=== PATIENT | male | born 1940 | race Two or more races ===

== ENCOUNTER 2018-12-20 12:09 | Inpatient (IN) | payer MEDICARE, BC ==
[2018-12-20] MEDS ORDERED: Albuterol/Ipratropium 3.0-0.5 MG/3 ML Neb Soln ONE (12:11)
[2018-12-20] MEDS ORDERED: Sodium Chloride 0.9% 10 ML Syringe FLUSH PRN (12:19)
[2018-12-20] MEDS ORDERED: Sodium Chloride 0.9% 2.5 ML Syringe FLUSH PRN (12:19)
--- NOTE | 2018-12-20 12:19 | EDM.PDOC ---
ED HPI GENERAL MEDICAL PROBLEM - General Chief Complaint: Respiratory Problem Stated Complaint: SOB Time Seen by Provider: 12/20/18 12:14 - History of Present Illness INITIAL COMMENTS - FREE TEXT/NARRATIVE: HISTORY AND PHYSICAL: History of present illness: Patient is 78-year-old white male history of coronary disease hypertension hypercholesterolemia throat cancer and COPD who presents with concern of shortness of breath he states he had similar episodes in the past related to COPD and associated pneumonia he equivocates regarding any fever he did receive influenza immunization this year he denies chest pain nausea vomiting. Review of systems: As per history of present illness and below otherwise all systems reviewed and negative. Past medical history: As per history of present illness and as reviewed below otherwise noncontributory. Surgical history: As per history of present illness and as reviewed below otherwise noncontributory. Social history: No reported history of drug or alcohol abuse. Family history: As per history of present illness and as reviewed below otherwise noncontributory. Physical exam: HEENT: Atraumatic, normocephalic, pupils reactive, negative for conjunctival pallor or scleral icterus, mucous membranes moist, throat clear, neck supple, nontender, trachea midline. Lungs: Coarse bilaterally diminished breath sounds equal bilaterally, chest nontender. Heart: S1S2, regular, negative for clicks, rubs, or JVD. Abdomen: Soft, nondistended, nontender. Negative for masses or hepatosplenomegaly. Negative for costovertebral tenderness. Pelvis: Stable nontender. Genitourinary: Deferred. Rectal: Deferred. Extremities: Atraumatic, negative for cords or calf pain. Neurovascular unremarkable. Neuro: Awake, alert, oriented. Follows commands and moves all extremities limited but grossly nonfocal examDiagnostics: CBC CMP PT/INR troponin BNP chest x-ray EKG influenza screen Therapeutics: IV O2 monitor albuterol ipratropium nebulizer Impression: 1 dyspnea #2 history of hypertension #3 history of COPD #4 history of hypercholesterolemia #5 history of throat cancer #6 history of pneumonia Definitive disposition and diagnosis as appropriate pending reevaluation and review of above. - Related Data Allergies Allergy/AdvReac Type Severity Reaction Status Date / Time No Known Allergies Allergy Verified 12/20/18 12:17 Home Meds: Home Meds Clopidogrel [Plavix] 75 mg PO DAILY 09/12/15 [History] Fluticasone/Salmeterol [Advair 250-50] 1 puff INH BID 09/12/15 [History] Metoprolol Succinate [Toprol XL] 100 mg PO DAILY 09/12/15 [History] Omeprazole 40 mg PO ACBREAKFAST 09/12/15 [History] traMADol HCl [Tramadol HCl] 50 mg PO DAILY 09/12/15 [History] Aspirin 81 mg PO DAILY tab.chew 09/13/15 [Rx] amLODIPine Besylate [Amlodipine Besylate] 10 mg PO DAILY 09/13/15 [History] Albuterol Sulfate [Proair Hfa] 2 puff INH Q4H PRN 12/20/18 [History] Celecoxib 200 mg PO DAILY 12/20/18 [History] Cyclobenzaprine [Flexeril] 10 mg PO DAILY PRN 12/20/18 [History] Nitroglycerin [Nitrostat] 0.4 mg SL Q5M PRN 12/20/18 [History] Tamsulosin [Tamsulosin 24 Hr] 0.4 mg PO DAILY 12/20/18 [History] atorvaSTATin [Lipitor] 40 mg PO DAILY 12/20/18 [History] Past Medical History 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 ED EXAM, GENERAL - Physical Exam Exam: See Below (See dictation) Course - Vital Signs Last Recorded V/S: Last Vital Signs Temp 37.3 C 12/20/18 12:15 Pulse 100 12/20/18 12:15 Resp 22 H 12/20/18 12:15 BP 136/56 L 12/20/18 12:15 Pulse Ox 90 L 12/20/18 12:19 - Orders/Labs/Meds Orders: Active Orders 24 hr Category Date Time Status Cardiac Monitoring [RC] . DIRECTED Care 12/20/18 12:19 Active EKG Documentation Completion [RC] STAT Care 12/20/18 12:19 Active Oxygen Therapy, ED [RC] ASDIRECTED Care 12/20/18 12:19 Active Pulse Oximetry [RC] ASDIRECTED Care 12/20/18 12:19 Active CULTURE BLOOD [BC] Stat Lab 12/20/18 12:34 Received CULTURE BLOOD [] Stat Lab 12/20/18 12:40 Received CULTURE SPUTUM + SMEAR [] Routine Lab 12/20/18 14:01 Ordered INFLUENZA A+B AG SCREEN [] Stat Lab 12/20/18 13:59 Ordered Levofloxacin/Dextrose 5%-Water [Levaquin in D5W 750 MG/ Med 12/20/18 13:22 Active 150 ML] 750 mg Premix Bag 1 bag IV ONETIME Levofloxacin/Dextrose 5%-Water [Levaquin in D5W 750 MG/ Med 12/21/18 14:00 Active 150 ML] 750 mg Premix Bag 1 bag IV Q24H Pharmacy to Dose - Vancomycin Med 12/20/18 14:00 Ordered 1 dose .XX ASDIRECTED Sodium Chloride 0.9% [Normal Saline] 1,000 ml Med 12/20/18 13:23 Active IV .Bolus Sodium Chloride 0.9% [Saline Flush] Med 12/20/18 12:19 Active 10 ml FLUSH ASDIRECTED PRN Sodium Chloride 0.9% [Saline Flush] Med 12/20/18 12:19 Active 2.5 ml FLUSH ASDIRECTED PRN Vancomycin [Vancocin] 1 gm Med 12/20/18 13:22 Active Sodium Chloride 0.9% [Normal Saline] 250 ml IV ONETIME Blood Culture x2 Reflex Set [OM.PC] Stat Oth 12/20/18 12:20 Ordered Saline Lock Insert [OM.PC] Stat Oth 12/20/18 12:19 Ordered Medication Orders Levofloxacin/Dextrose 750 mg/ (Premix) 150 mls @ 100 mls/hr IV ONETIME ONE Stop: 12/20/18 14:51 Vancomycin HCl 1 gm/ Sodium (Chloride) 250 mls @ 166 mls/hr IV ONETIME ONE Stop: 12/20/18 14:52 Sodium Chloride (Normal Saline) 1,000 mls @ 999 mls/hr IV .Bolus ONE Stop: 12/20/18 14:23 Last Admin: 12/20/18 13:59 Dose: 999 mls/hr Levofloxacin/Dextrose 750 mg/ (Premix) 150 mls @ 100 mls/hr IV Q24H ADAN Sodium Chloride (Saline Flush) 10 ml FLUSH ASDIRECTED PRN PRN Reason: Keep Vein Open Sodium Chloride (Saline Flush) 2.5 ml FLUSH ASDIRECTED PRN PRN Reason: Keep Vein Open Vancomycin HCl (Pharmacy To Dose - Vancomycin) 1 dose .XX ASDIRECTED ADAN Labs: Laboratory Tests 12/20/18 12/20/18 12/20/18 Range/Units 12:34 12:34 12:34 WBC 15.93 H (4.0-11.0) K/uL RBC 4.90 (4.50-5.90) M/uL Hgb 15.3 (13.0-17.0) g/dL Hct 44.7 (38.0-50.0) % MCV 91.2 (80.0-98.0) fL MCH 31.2 (27.0-32.0) pg MCHC 34.2 (31.0-37.0) g/dL RDW Std Deviation 45.4 (28.0-62.0) fl RDW Coeff of Yaniv 14 (11.0-15.0) % Plt Count 131 L (150-400) K/uL MPV 10.50 (7.40-12.00) fL Add Manual Diff YES Neutrophils % (Manual) 87 H (48.0-80.0) % Band Neutrophils % 4 % Lymphocytes % (Manual) 7 L (16.0-40.0) % Monocytes % (Manual) 1 (0.0-15.0) % Basophils % (Manual) 1 (0.0-1.5) % Nucleated RBC % 0.0 /100WBC Absolute Seg Neuts 13.9 H (1.4-5.7) Band Neutrophils # 0.6 Lymphocytes # (Manual) 1.1 (0.6-2.4) Monocytes # (Manual) 0.2 (0.0-0.8) Basophils # (Manual) 0.2 H (0.0-0.1) Nucleated RBCs # 0 K/uL INR 1.10 ABG pH (7.35-7.45) ABG pCO2 (35-45) mmHG ABG pO2 (75-100) mmHG ABG HCO3 (22-26) mEq/L ABG Total CO2 ABG Base Excess (-2.0-2.0) Lactate (0.20-2.00) mmol/L Sodium 139 (136-148) mmol/L Potassium 3.9 (3.5-5.1) mmol/L Chloride 105 (98-107) mmol/L Carbon Dioxide 26.3 (21.0-32.0) mmol/L BUN 20 H (7.0-18.0) mg/dL Creatinine 1.3 (0.8-1.3) mg/dL Est Cr Clr Drug Dosing 47.59 mL/min Estimated GFR (MDRD) 53.5 ml/min Glucose 153 H (74-106) mg/dL Calcium 9.0 (8.5-10.1) mg/dL Total Bilirubin 1.0 (0.2-1.0) mg/dL AST 16 (15-37) IU/L ALT 13 L (14-63) IU/L Alkaline Phosphatase 73 (46-116) U/L Troponin I < 0.050 (0.000-0.056) ng/mL B-Natriuretic Peptide (<100) PG/ML Total Protein 6.5 (6.4-8.2) g/dL Albumin 3.7 (3.4-5.0) g/dL Globulin 2.8 (2.6-4.0) g/dL Albumin/Globulin Ratio 1.3 (0.9-1.6) Urine Color Urine Appearance Urine pH (5.0-8.0) Ur Specific [place] (1.001-1.035) Urine Protein (NEGATIVE) mg/dL Urine Glucose (UA) (NEGATIVE) mg/dL Urine Ketones (NEGATIVE) mg/dL Urine Occult Blood (NEGATIVE) Urine Nitrite (NEGATIVE) Urine Bilirubin (NEGATIVE) Urine Urobilinogen (<2.0) EU/dL Ur Leukocyte Esterase (NEGATIVE) 12/20/18 12/20/18 12/20/18 Range/Units 12:34 12:34 12:55 WBC (4.0-11.0) K/uL RBC (4.50-5.90) M/uL Hgb (13.0-17.0) g/dL Hct (38.0-50.0) % MCV (80.0-98.0) fL MCH (27.0-32.0) pg MCHC (31.0-37.0) g/dL RDW Std Deviation (28.0-62.0) fl RDW Coeff of Yaniv (11.0-15.0) % Plt Count (150-400) K/uL MPV (7.40-12.00) fL Add Manual Diff Neutrophils % (Manual) (48.0-80.0) % Band Neutrophils % % Lymphocytes % (Manual) (16.0-40.0) % Monocytes % (Manual) (0.0-15.0) % Basophils % (Manual) (0.0-1.5) % Nucleated RBC % /100WBC Absolute Seg Neuts (1.4-5.7) Band Neutrophils # Lymphocytes # (Manual) (0.6-2.4) Monocytes # (Manual) (0.0-0.8) Basophils # (Manual) (0.0-0.1) Nucleated RBCs # K/uL INR ABG pH 7.414 (7.35-7.45) ABG pCO2 40 (35-45) mmHG ABG pO2 61 L (75-100) mmHG ABG HCO3 25 (22-26) mEq/L ABG Total CO2 22.2 ABG Base Excess 0.7 (-2.0-2.0) Lactate 2.0 (0.20-2.00) mmol/L Sodium (136-148) mmol/L Potassium (3.5-5.1) mmol/L Chloride (98-107) mmol/L Carbon Dioxide (21.0-32.0) mmol/L BUN (7.0-18.0) mg/dL Creatinine (0.8-1.3) mg/dL Est Cr Clr Drug Dosing mL/min Estimated GFR (MDRD) ml/min Glucose (74-106) mg/dL Calcium (8.5-10.1) mg/dL Total Bilirubin (0.2-1.0) mg/dL AST (15-37) IU/L ALT (14-63) IU/L Alkaline Phosphatase (46-116) U/L Troponin I (0.000-0.056) ng/mL B-Natriuretic Peptide 48 (<100) PG/ML Total Protein (6.4-8.2) g/dL Albumin (3.4-5.0) g/dL Globulin (2.6-4.0) g/dL Albumin/Globulin Ratio (0.9-1.6) Urine Color Urine Appearance Urine pH (5.0-8.0) Ur Specific [place] (1.001-1.035) Urine Protein (NEGATIVE) mg/dL Urine Glucose (UA) (NEGATIVE) mg/dL Urine Ketones (NEGATIVE) mg/dL Urine Occult Blood (NEGATIVE) Urine Nitrite (NEGATIVE) Urine Bilirubin (NEGATIVE) Urine Urobilinogen (<2.0) EU/dL Ur Leukocyte Esterase (NEGATIVE) 12/20/18 Range/Units 13:01 WBC (4.0-11.0) K/uL RBC (4.50-5.90) M/uL Hgb (13.0-17.0) g/dL Hct (38.0-50.0) % MCV (80.0-98.0) fL MCH (27.0-32.0) pg MCHC (31.0-37.0) g/dL RDW Std Deviation (28.0-62.0) fl RDW Coeff of Yaniv (11.0-15.0) % Plt Count (150-400) K/uL MPV (7.40-12.00) fL Add Manual Diff Neutrophils % (Manual) (48.0-80.0) % Band Neutrophils % % Lymphocytes % (Manual) (16.0-40.0) % Monocytes % (Manual) (0.0-15.0) % Basophils % (Manual) (0.0-1.5) % Nucleated RBC % /100WBC Absolute Seg Neuts (1.4-5.7) Band Neutrophils # Lymphocytes # (Manual) (0.6-2.4) Monocytes # (Manual) (0.0-0.8) Basophils # (Manual) (0.0-0.1) Nucleated RBCs # K/uL INR ABG pH (7.35-7.45) ABG pCO2 (35-45) mmHG ABG pO2 (75-100) mmHG ABG HCO3 (22-26) mEq/L ABG Total CO2 ABG Base Excess (-2.0-2.0) Lactate (0.20-2.00) mmol/L Sodium (136-148) mmol/L Potassium (3.5-5.1) mmol/L Chloride (98-107) mmol/L Carbon Dioxide (21.0-32.0) mmol/L BUN (7.0-18.0) mg/dL Creatinine (0.8-1.3) mg/dL Est Cr Clr Drug Dosing mL/min Estimated GFR (MDRD) ml/min Glucose (74-106) mg/dL Calcium (8.5-10.1) mg/dL Total Bilirubin (0.2-1.0) mg/dL AST (15-37) IU/L ALT (14-63) IU/L Alkaline Phosphatase (46-116) U/L Troponin I (0.000-0.056) ng/mL B-Natriuretic Peptide (<100) PG/ML Total Protein (6.4-8.2) g/dL Albumin (3.4-5.0) g/dL Globulin (2.6-4.0) g/dL Albumin/Globulin Ratio (0.9-1.6) Urine Color YELLOW Urine Appearance CLEAR Urine pH 5.5 (5.0-8.0) Ur Specific [place] 1.025 (1.001-1.035) Urine Protein NEGATIVE (NEGATIVE) mg/dL Urine Glucose (UA) NEGATIVE (NEGATIVE) mg/dL Urine Ketones NEGATIVE (NEGATIVE) mg/dL Urine Occult Blood NEGATIVE (NEGATIVE) Urine Nitrite NEGATIVE (NEGATIVE) Urine Bilirubin NEGATIVE (NEGATIVE) Urine Urobilinogen 0.2 (<2.0) EU/dL Ur Leukocyte Esterase NEGATIVE (NEGATIVE) Meds: Medications Generic Name Dose Route Start Last Admin Trade Name Freq PRN Reason Stop Dose Admin Levofloxacin/Dextrose 750 mg/ 150 mls @ 100 mls/hr 12/20/18 13:22 Premix IV 12/20/18 14:51 ONETIME ONE Vancomycin HCl 1 gm/ Sodium 250 mls @ 166 mls/hr 12/20/18 13:22 Chloride IV 12/20/18 14:52 ONETIME ONE Sodium Chloride 1,000 mls @ 999 mls/hr 12/20/18 13:23 12/20/18 13:59 Normal Saline IV 12/20/18 14:23 999 mls/hr .Bolus ONE Administration Levofloxacin/Dextrose 750 mg/ 150 mls @ 100 mls/hr 12/21/18 14:00 Premix IV Q24H ADAN Sodium Chloride 10 ml 12/20/18 12:19 Saline Flush FLUSH ASDIRECTED PRN Keep Vein Open Sodium Chloride 2.5 ml 12/20/18 12:19 Saline Flush FLUSH ASDIRECTED PRN Keep Vein Open Vancomycin HCl 1 dose 12/20/18 14:00 Pharmacy To Dose - Vancomycin .XX ASDIRECTED ADAN Discontinued Medications Generic Name Dose Route Start Last Admin Trade Name Freq PRN Reason Stop Dose Admin Albuterol/Ipratropium Confirm 12/20/18 12:11 12/20/18 12:17 Duoneb 3.0-0.5 Mg/3 Ml Administered 12/20/18 12:12 3 ml Dose Administration 3 ml .ROUTE .STK-MED ONE Departure - Departure Time of Disposition: 13:28 Disposition: Admitted As Inpatient 67 Condition: Good Clinical Impression: Pneumonia - Discharge Information Referrals: PCP,None [Primary Care Provider] - Forms: ED Department Discharge - My Orders Last 24 Hours: My Active Orders 12/20/18 12:19 Cardiac Monitoring [RC] . DIRECTED EKG Documentation Completion [RC] STAT Oxygen Therapy, ED [RC] ASDIRECTED Pulse Oximetry [RC] ASDIRECTED Sodium Chloride 0.9% [Saline Flush] 10 ml FLUSH ASDIRECTED PRN Sodium Chloride 0.9% [Saline Flush] 2.5 ml FLUSH ASDIRECTED PRN Saline Lock Insert [OM.PC] Stat 12/20/18 12:20 Blood Culture x2 Reflex Set [OM.PC] Stat 12/20/18 12:34 CULTURE BLOOD [BC] Stat 12/20/18 12:40 CULTURE BLOOD [BC] Stat 12/20/18 13:22 Levofloxacin/Dextrose 5%-Water [Levaquin in D5W 750 MG/150 ML] 750 mg Premix Bag 1 bag IV ONETIME Vancomycin [Vancocin] 1 gm Sodium Chloride 0.9% [Normal Saline] 250 ml IV ONETIME 12/20/18 13:23 Sodium Chloride 0.9% [Normal Saline] 1,000 ml IV .Bolus - Assessment/Plan Last 24 Hours: My Active Orders 12/20/18 12:19 Cardiac Monitoring [RC] . DIRECTED EKG Documentation Completion [RC] STAT Oxygen Therapy, ED [RC] ASDIRECTED Pulse Oximetry [RC] ASDIRECTED Sodium Chloride 0.9% [Saline Flush] 10 ml FLUSH ASDIRECTED PRN Sodium Chloride 0.9% [Saline Flush] 2.5 ml FLUSH ASDIRECTED PRN Saline Lock Insert [OM.PC] Stat 12/20/18 12:20 Blood Culture x2 Reflex Set [OM.PC] Stat 12/20/18 12:34 CULTURE BLOOD [BC] Stat 12/20/18 12:40 CULTURE BLOOD [BC] Stat 12/20/18 13:22 Levofloxacin/Dextrose 5%-Water [Levaquin in D5W 750 MG/150 ML] 750 mg Premix Bag 1 bag IV ONETIME Vancomycin [Vancocin] 1 gm Sodium Chloride 0.9% [Normal Saline] 250 ml IV ONETIME 12/20/18 13:23 Sodium Chloride 0.9% [Normal Saline] 1,000 ml IV .Bolus
--- NOTE | 2018-12-20 13:05 | CR ---
HISTORY: Chest pain and [id number]. FINDINGS: Single AP view of the chest is provided. Patchy airspace opacity is identified at the right lung base consistent with pneumonia until proven otherwise. The upper portion of the right lung and left lung are clear. No evidence for pneumothorax. Cardiac silhouette size is within normal limits. IMPRESSION: Evidence for pneumonia in the right lower lung. Dictated by Oliverio Jerry MD @ Dec 20 2018 1:04PM Signed by Dr. Oliverio Jerry @ Dec 20 2018 1:04PM
[2018-12-20 13:12] LABS: CHLORIDE,CL 105 mmol/L (98-107); SODIUM,NA 139 mmol/L (136-148)
[2018-12-20] MEDS ORDERED: Levofloxacin/Dextrose 5%-Water 750 MG in Premix Bag 1 BAG IV ONE (13:22)
[2018-12-20] MEDS ORDERED: Sodium Chloride 0.9% 1,000 ML IV ONE (13:23)
[2018-12-20] MEDS ORDERED: Cyclobenzaprine 10 MG Tab PO PRN (14:01)
[2018-12-20] MEDS ORDERED: Ondansetron 4 MG/2 ML SDV IVPUSH PRN (14:04)
--- NOTE | 2018-12-20 14:08 | PCM.HP ---
H&P History of Present Illness - General Date of Service: 12/20/18 Admit Problem/Dx: Admission Diagnosis/Problem Admission Diagnosis/Problem Pneumonia - History of Present Illness Initial Comments - Free Text/Narative: 78 yo male with pmh of CAD who presents with two week history of productive cough shortness of breath and fever. - Related Data Allergies/Adverse Reactions: Allergies Allergy/AdvReac Type Severity Reaction Status Date / Time No Known Allergies Allergy Verified 12/20/18 12:17 Home Medications: Home Meds Clopidogrel [Plavix] 75 mg PO DAILY 09/12/15 [History] Fluticasone/Salmeterol [Advair 250-50] 1 puff INH BID 09/12/15 [History] Metoprolol Succinate [Toprol XL] 100 mg PO DAILY 09/12/15 [History] Omeprazole 40 mg PO ACBREAKFAST 09/12/15 [History] traMADol HCl [Tramadol HCl] 50 mg PO DAILY 09/12/15 [History] Aspirin 81 mg PO DAILY tab.chew 09/13/15 [Rx] amLODIPine Besylate [Amlodipine Besylate] 10 mg PO DAILY 09/13/15 [History] Albuterol Sulfate [Proair Hfa] 2 puff INH Q4H PRN 12/20/18 [History] Celecoxib 200 mg PO DAILY 12/20/18 [History] Cyclobenzaprine [Flexeril] 10 mg PO DAILY PRN 12/20/18 [History] Nitroglycerin [Nitrostat] 0.4 mg SL Q5M PRN 12/20/18 [History] Tamsulosin [Tamsulosin 24 Hr] 0.4 mg PO DAILY 12/20/18 [History] atorvaSTATin [Lipitor] 40 mg PO DAILY 12/20/18 [History] Past Medical History HEENT History: Reports: Impaired Vision, Other (See Below) Other HEENT History: wears glasses Cardiovascular History: Reports: High Cholesterol, Hypertension, Stents Respiratory History: Reports: COPD, Pneumonia, Recurrent Gastrointestinal History: Reports: Other (See Below) Other Gastrointestinal History: fistula Genitourinary History: Reports: None Musculoskeletal History: Reports: Arthritis Neurological History: Reports: CVA Psychiatric History: Reports: None Endocrine/Metabolic History: Reports: None Hematologic History: Reports: None Immunologic History: Reports: None Oncologic (Cancer) History: Reports: Other (See Below) Other Oncologic History: cancer of "voice box" Dermatologic History: Reports: None - Infectious Disease History Infectious Disease History: Reports: Chicken Pox, Measles, Mumps - Past Surgical History Other GI Surgeries/Procedures: colon resection Other Male Surgeries/Procedures: colon/bladder fistula surgery Social & Family History - Family History Family Medical History: Noncontributory - Tobacco Use Smoking Status *Q: Former Smoker Used Tobacco, but Quit: Yes Month/Year Tobacco Last Used: June 2018 - Caffeine Use Caffeine Use: Reports: Coffee - Recreational Drug Use Recreational Drug Use: No H&P Review of Systems - Review of Systems: Review Of Systems: ROS reveals no pertinent complaints other than HPI. Exam - Exam Exam: See Below - Vital Signs Vital Signs: Last Vital Signs Temp 37.3 C 12/20/18 12:15 Pulse 100 12/20/18 12:15 Resp 22 H 12/20/18 12:15 BP 136/56 L 12/20/18 12:15 Pulse Ox 90 L 12/20/18 12:19 Weight: 77.1 kg - Exam General: Alert, Oriented Lungs: Clear to Auscultation, Normal Respiratory Effort Cardiovascular: Regular Rate, Regular Rhythm GI/Abdominal Exam: Soft, Non-Tender Extremities: Non-Tender, No Pedal Edema Skin: Warm, Dry, Intact - Patient Data Lab Results Last 24 hrs: Laboratory Results - last 24 hr 12/20/18 12/20/18 12/20/18 Range/Units 12:34 12:34 12:34 WBC 15.93 H (4.0-11.0) K/uL RBC 4.90 (4.50-5.90) M/uL Hgb 15.3 (13.0-17.0) g/dL Hct 44.7 (38.0-50.0) % MCV 91.2 (80.0-98.0) fL MCH 31.2 (27.0-32.0) pg MCHC 34.2 (31.0-37.0) g/dL RDW Std Deviation 45.4 (28.0-62.0) fl RDW Coeff of Yaniv 14 (11.0-15.0) % Plt Count 131 L (150-400) K/uL MPV 10.50 (7.40-12.00) fL Add Manual Diff YES Neutrophils % (Manual) 87 H (48.0-80.0) % Band Neutrophils % 4 % Lymphocytes % (Manual) 7 L (16.0-40.0) % Monocytes % (Manual) 1 (0.0-15.0) % Basophils % (Manual) 1 (0.0-1.5) % Nucleated RBC % 0.0 /100WBC Absolute Seg Neuts 13.9 H (1.4-5.7) Band Neutrophils # 0.6 Lymphocytes # (Manual) 1.1 (0.6-2.4) Monocytes # (Manual) 0.2 (0.0-0.8) Basophils # (Manual) 0.2 H (0.0-0.1) Nucleated RBCs # 0 K/uL INR 1.10 ABG pH (7.35-7.45) ABG pCO2 (35-45) mmHG ABG pO2 (75-100) mmHG ABG HCO3 (22-26) mEq/L ABG Total CO2 ABG Base Excess (-2.0-2.0) Lactate (0.20-2.00) mmol/L Sodium 139 (136-148) mmol/L Potassium 3.9 (3.5-5.1) mmol/L Chloride 105 (98-107) mmol/L Carbon Dioxide 26.3 (21.0-32.0) mmol/L BUN 20 H (7.0-18.0) mg/dL Creatinine 1.3 (0.8-1.3) mg/dL Est Cr Clr Drug Dosing 47.59 mL/min Estimated GFR (MDRD) 53.5 ml/min Glucose 153 H (74-106) mg/dL Calcium 9.0 (8.5-10.1) mg/dL Total Bilirubin 1.0 (0.2-1.0) mg/dL AST 16 (15-37) IU/L ALT 13 L (14-63) IU/L Alkaline Phosphatase 73 (46-116) U/L Troponin I < 0.050 (0.000-0.056) ng/mL B-Natriuretic Peptide (<100) PG/ML Total Protein 6.5 (6.4-8.2) g/dL Albumin 3.7 (3.4-5.0) g/dL Globulin 2.8 (2.6-4.0) g/dL Albumin/Globulin Ratio 1.3 (0.9-1.6) Urine Color Urine Appearance Urine pH (5.0-8.0) Ur Specific [place] (1.001-1.035) Urine Protein (NEGATIVE) mg/dL Urine Glucose (UA) (NEGATIVE) mg/dL Urine Ketones (NEGATIVE) mg/dL Urine Occult Blood (NEGATIVE) Urine Nitrite (NEGATIVE) Urine Bilirubin (NEGATIVE) Urine Urobilinogen (<2.0) EU/dL Ur Leukocyte Esterase (NEGATIVE) 12/20/18 12/20/18 12/20/18 Range/Units 12:34 12:34 12:55 WBC (4.0-11.0) K/uL RBC (4.50-5.90) M/uL Hgb (13.0-17.0) g/dL Hct (38.0-50.0) % MCV (80.0-98.0) fL MCH (27.0-32.0) pg MCHC (31.0-37.0) g/dL RDW Std Deviation (28.0-62.0) fl RDW Coeff of Yaniv (11.0-15.0) % Plt Count (150-400) K/uL MPV (7.40-12.00) fL Add Manual Diff Neutrophils % (Manual) (48.0-80.0) % Band Neutrophils % % Lymphocytes % (Manual) (16.0-40.0) % Monocytes % (Manual) (0.0-15.0) % Basophils % (Manual) (0.0-1.5) % Nucleated RBC % /100WBC Absolute Seg Neuts (1.4-5.7) Band Neutrophils # Lymphocytes # (Manual) (0.6-2.4) Monocytes # (Manual) (0.0-0.8) Basophils # (Manual) (0.0-0.1) Nucleated RBCs # K/uL INR ABG pH 7.414 (7.35-7.45) ABG pCO2 40 (35-45) mmHG ABG pO2 61 L (75-100) mmHG ABG HCO3 25 (22-26) mEq/L ABG Total CO2 22.2 ABG Base Excess 0.7 (-2.0-2.0) Lactate 2.0 (0.20-2.00) mmol/L Sodium (136-148) mmol/L Potassium (3.5-5.1) mmol/L Chloride (98-107) mmol/L Carbon Dioxide (21.0-32.0) mmol/L BUN (7.0-18.0) mg/dL Creatinine (0.8-1.3) mg/dL Est Cr Clr Drug Dosing mL/min Estimated GFR (MDRD) ml/min Glucose (74-106) mg/dL Calcium (8.5-10.1) mg/dL Total Bilirubin (0.2-1.0) mg/dL AST (15-37) IU/L ALT (14-63) IU/L Alkaline Phosphatase (46-116) U/L Troponin I (0.000-0.056) ng/mL B-Natriuretic Peptide 48 (<100) PG/ML Total Protein (6.4-8.2) g/dL Albumin (3.4-5.0) g/dL Globulin (2.6-4.0) g/dL Albumin/Globulin Ratio (0.9-1.6) Urine Color Urine Appearance Urine pH (5.0-8.0) Ur Specific [place] (1.001-1.035) Urine Protein (NEGATIVE) mg/dL Urine Glucose (UA) (NEGATIVE) mg/dL Urine Ketones (NEGATIVE) mg/dL Urine Occult Blood (NEGATIVE) Urine Nitrite (NEGATIVE) Urine Bilirubin (NEGATIVE) Urine Urobilinogen (<2.0) EU/dL Ur Leukocyte Esterase (NEGATIVE) 12/20/18 Range/Units 13:01 WBC (4.0-11.0) K/uL RBC (4.50-5.90) M/uL Hgb (13.0-17.0) g/dL Hct (38.0-50.0) % MCV (80.0-98.0) fL MCH (27.0-32.0) pg MCHC (31.0-37.0) g/dL RDW Std Deviation (28.0-62.0) fl RDW Coeff of Yaniv (11.0-15.0) % Plt Count (150-400) K/uL MPV (7.40-12.00) fL Add Manual Diff Neutrophils % (Manual) (48.0-80.0) % Band Neutrophils % % Lymphocytes % (Manual) (16.0-40.0) % Monocytes % (Manual) (0.0-15.0) % Basophils % (Manual) (0.0-1.5) % Nucleated RBC % /100WBC Absolute Seg Neuts (1.4-5.7) Band Neutrophils # Lymphocytes # (Manual) (0.6-2.4) Monocytes # (Manual) (0.0-0.8) Basophils # (Manual) (0.0-0.1) Nucleated RBCs # K/uL INR ABG pH (7.35-7.45) ABG pCO2 (35-45) mmHG ABG pO2 (75-100) mmHG ABG HCO3 (22-26) mEq/L ABG Total CO2 ABG Base Excess (-2.0-2.0) Lactate (0.20-2.00) mmol/L Sodium (136-148) mmol/L Potassium (3.5-5.1) mmol/L Chloride (98-107) mmol/L Carbon Dioxide (21.0-32.0) mmol/L BUN (7.0-18.0) mg/dL Creatinine (0.8-1.3) mg/dL Est Cr Clr Drug Dosing mL/min Estimated GFR (MDRD) ml/min Glucose (74-106) mg/dL Calcium (8.5-10.1) mg/dL Total Bilirubin (0.2-1.0) mg/dL AST (15-37) IU/L ALT (14-63) IU/L Alkaline Phosphatase (46-116) U/L Troponin I (0.000-0.056) ng/mL B-Natriuretic Peptide (<100) PG/ML Total Protein (6.4-8.2) g/dL Albumin (3.4-5.0) g/dL Globulin (2.6-4.0) g/dL Albumin/Globulin Ratio (0.9-1.6) Urine Color YELLOW Urine Appearance CLEAR Urine pH 5.5 (5.0-8.0) Ur Specific [place] 1.025 (1.001-1.035) Urine Protein NEGATIVE (NEGATIVE) mg/dL Urine Glucose (UA) NEGATIVE (NEGATIVE) mg/dL Urine Ketones NEGATIVE (NEGATIVE) mg/dL Urine Occult Blood NEGATIVE (NEGATIVE) Urine Nitrite NEGATIVE (NEGATIVE) Urine Bilirubin NEGATIVE (NEGATIVE) Urine Urobilinogen 0.2 (<2.0) EU/dL Ur Leukocyte Esterase NEGATIVE (NEGATIVE) Result Diagrams: 12/21/18 05:50 12/21/18 05:50 Problem List Initiated/Reviewed/Updated: Yes Orders Last 24hrs: Active Orders 24 hr Category Date Time Status Patient Status [ADT] Stat ADT 12/20/18 14:03 Active Antiembolic Devices [RC] PER UNIT ROUTINE Care 12/20/18 14:05 Ordered Cardiac Monitoring [RC] . DIRECTED Care 12/20/18 12:19 Active EKG Documentation Completion [RC] STAT Care 12/20/18 12:19 Active Oxygen Therapy [RC] PRN Care 12/20/18 14:04 Ordered Oxygen Therapy, ED [RC] ASDIRECTED Care 12/20/18 12:19 Active Pulse Oximetry [RC] ASDIRECTED Care 12/20/18 12:19 Active Up ad Jessenia [RC] ASDIRECTED Care 12/20/18 14:04 Ordered VTE/DVT Education [RC] PER UNIT ROUTINE Care 12/20/18 14:04 Ordered Vital Signs [RC] Q4H Care 12/20/18 14:04 Ordered Regular Diet [DIET] Diet 12/20/18 Breakfast Ordered BASIC METABOLIC PANEL,BMP [CHEM] AM Lab 12/21/18 05:11 Ordered BASIC METABOLIC PANEL,BMP [CHEM] AM Lab 12/22/18 05:11 Ordered CBC WITH AUTO DIFF [HEME] AM Lab 12/21/18 05:11 Ordered CBC WITH AUTO DIFF [HEME] AM Lab 12/22/18 05:11 Ordered CULTURE BLOOD [BC] Stat Lab 12/20/18 12:34 Received CULTURE BLOOD [BC] Stat Lab 12/20/18 12:40 Received CULTURE SPUTUM + SMEAR [RM] Routine Lab 12/20/18 14:01 Ordered INFLUENZA A+B AG SCREEN [RM] Stat Lab 12/20/18 13:59 Ordered Aspirin Med 12/21/18 09:00 Ordered 81 mg PO DAILY Clopidogrel [Plavix] Med 12/21/18 09:00 Ordered 75 mg PO DAILY Cyclobenzaprine [Flexeril] Med 12/20/18 14:01 Ordered 10 mg PO DAILY PRN Fluticasone/Salmeterol [Advair Diskus 250-50] Med 12/20/18 21:00 Ordered 1 puff INH BID Heparin Sodium Med 12/20/18 14:15 Ordered 5,000 units SUBCUT Q8H Levofloxacin/Dextrose 5%-Water [Levaquin in D5W 750 MG/ Med 12/20/18 13:22 Active 150 ML] 750 mg Premix Bag 1 bag IV ONETIME Levofloxacin/Dextrose 5%-Water [Levaquin in D5W 750 MG/ Med 12/21/18 14:00 Ordered 150 ML] 750 mg Premix Bag 1 bag IV Q24H Metoprolol Succinate [Toprol XL] Med 12/21/18 09:00 Ordered 100 mg PO DAILY Omeprazole [Omeprazole] Med 12/21/18 07:30 Ordered 40 mg PO ACBREAKFAST Ondansetron [Zofran] Med 12/20/18 14:04 Ordered 4 mg IVPUSH Q4H PRN Pharmacy to Dose - Vancomycin Med 12/20/18 14:00 Ordered 1 dose .XX ASDIRECTED Sodium Chloride 0.9% @ 125 MLS/HR (1000ml) Med 12/20/18 14:15 Ordered Sodium Chloride 0.9% [Normal Saline] 1,000 ml IV ASDIRECTED Sodium Chloride 0.9% [Normal Saline] 1,000 ml Med 12/20/18 13:23 Active IV .Bolus Sodium Chloride 0.9% [Saline Flush] Med 12/20/18 12:19 Active 10 ml FLUSH ASDIRECTED PRN Sodium Chloride 0.9% [Saline Flush] Med 12/20/18 12:19 Active 2.5 ml FLUSH ASDIRECTED PRN Vancomycin [Vancocin] 1 gm Med 12/20/18 13:22 Active Sodium Chloride 0.9% [Normal Saline] 250 ml IV ONETIME atorvaSTATin [Lipitor] Med 12/21/18 09:00 Ordered 40 mg PO DAILY Blood Culture x2 Reflex Set [OM.PC] Stat Oth 12/20/18 12:20 Ordered Saline Lock Insert [OM.PC] Stat Oth 12/20/18 12:19 Ordered Sequential Compression Device [OM.PC] Per Unit Routine Ot 12/20/18 14:04 Ordered Resuscitation Status Routine Resus Stat 12/20/18 14:04 Ordered Medication Orders Aspirin (Aspirin) 81 mg PO DAILY ADAN Atorvastatin Calcium (Lipitor) 40 mg PO DAILY ADAN Clopidogrel Bisulfate (Plavix) 75 mg PO DAILY ADAN Cyclobenzaprine HCl (Flexeril) 10 mg PO DAILY PRN PRN Reason: Pain Levofloxacin/Dextrose 750 mg/ (Premix) 150 mls @ 100 mls/hr IV ONETIME ONE Stop: 12/20/18 14:51 Last Admin: 12/20/18 14:03 Dose: 100 mls/hr Vancomycin HCl 1 gm/ Sodium (Chloride) 250 mls @ 166 mls/hr IV ONETIME ONE Stop: 12/20/18 14:52 Sodium Chloride (Normal Saline) 1,000 mls @ 999 mls/hr IV .Bolus ONE Stop: 12/20/18 14:23 Last Admin: 12/20/18 13:59 Dose: 999 mls/hr Levofloxacin/Dextrose 750 mg/ (Premix) 150 mls @ 100 mls/hr IV Q24H ADAN Metoprolol Succinate (Toprol Xl) 100 mg PO DAILY ADAN Non-Formulary Medication (Omeprazole [Omeprazole]) 40 mg PO ACBREAKFAST ADAN Fluticasone/Salmeterol (Advair Diskus 250-50) 1 puff INH BID ADAN Sodium Chloride (Saline Flush) 10 ml FLUSH ASDIRECTED PRN PRN Reason: Keep Vein Open Sodium Chloride (Saline Flush) 2.5 ml FLUSH ASDIRECTED PRN PRN Reason: Keep Vein Open Vancomycin HCl (Pharmacy To Dose - Vancomycin) 1 dose .XX ASDIRECTED ADAN Assessment/Plan Comment:: 78 yo male admitted with severe community acquired pneumonia with hypoxia. We will treat with vancomycin and levaquin. Cultures ordered and are pending.
[2018-12-20] MEDS: Heparin Sodium 5,000 Units/ML Vial SUBCUT SCH ×2 (16:11→22:23)
[2018-12-20] MEDS: Fluticasone/Salmeterol 250-50 MCG Inhalation Powder 14/Diskus INH SCH (20:37)
[2018-12-20] MEDS: Sodium Chloride 0.9% 1,000 ML IV SCH (22:21)
[2018-12-20] MEDS: Benzonatate 100 MG Cap PO PRN (22:24)
[2018-12-21] MEDS: Heparin Sodium 5,000 Units/ML Vial SUBCUT SCH ×3 (06:09→21:44)
[2018-12-21] MEDS: Benzonatate 100 MG Cap PO PRN (06:22)
[2018-12-21] MEDS: Omeprazole 20 MG Cap.CR PO SCH ×2 (06:23→06:40)
[2018-12-21] MEDS: Sodium Chloride 0.9% 1,000 ML IV SCH (07:58)
[2018-12-21] MEDS: Clopidogrel 75 MG Tab PO SCH (08:38)
[2018-12-21] MEDS: atorvaSTATin 40 MG Tab PO SCH (08:38)
[2018-12-21] MEDS: Aspirin 81 MG Tab.Chew PO SCH (08:38)
[2018-12-21] MEDS: Metoprolol Succinate 100 MG Tab.ER PO SCH (08:44)
[2018-12-21] MEDS: Fluticasone/Salmeterol 250-50 MCG Inhalation Powder 14/Diskus INH SCH ×2 (10:44→21:07)
--- NOTE | 2018-12-21 12:31 | PCM.PN ---
- General Info Date of Service: 12/21/18 - Review of Systems Systems Review Comment:: patient feeling better, reports cough. - Patient Data Vitals - Most Recent: Last Vital Signs Temp 36.7 C 12/21/18 11:48 Pulse 66 12/21/18 11:48 Resp 16 12/21/18 11:48 BP 144/83 H 12/21/18 11:48 Pulse Ox 95 12/21/18 11:48 Weight - Most Recent: 77.1 kg I&O - Last 24 Hours: Intake & Output 12/20/18 12/21/18 12/21/18 22:59 06:59 14:59 Intake Total 300 2544 Output Total 1120 Balance 300 1424 Lab Results Last 24 Hours: Laboratory Results - last 24 hr 12/20/18 12/20/18 12/20/18 Range/Units 12:34 12:34 12:34 WBC 15.93 H (4.0-11.0) K/uL RBC 4.90 (4.50-5.90) M/uL Hgb 15.3 (13.0-17.0) g/dL Hct 44.7 (38.0-50.0) % MCV 91.2 (80.0-98.0) fL MCH 31.2 (27.0-32.0) pg MCHC 34.2 (31.0-37.0) g/dL RDW Std Deviation 45.4 (28.0-62.0) fl RDW Coeff of Yaniv 14 (11.0-15.0) % Plt Count 131 L (150-400) K/uL MPV 10.50 (7.40-12.00) fL Neut % (Auto) (48.0-80.0) % Lymph % (Auto) (16.0-40.0) % Knott % (Auto) (0.0-15.0) % Eos % (Auto) (0.0-7.0) % Baso % (Auto) (0.0-1.5) % Neut # (Auto) (1.4-5.7) K/uL Lymph # (Auto) (0.6-2.4) K/uL Knott # (Auto) (0.0-0.8) K/uL Eos # (Auto) (0.0-0.7) K/uL Baso # (Auto) (0.0-0.1) K/uL Add Manual Diff YES Neutrophils % (Manual) 87 H (48.0-80.0) % Band Neutrophils % 4 % Lymphocytes % (Manual) 7 L (16.0-40.0) % Monocytes % (Manual) 1 (0.0-15.0) % Basophils % (Manual) 1 (0.0-1.5) % Nucleated RBC % 0.0 /100WBC Absolute Seg Neuts 13.9 H (1.4-5.7) Band Neutrophils # 0.6 Lymphocytes # (Manual) 1.1 (0.6-2.4) Monocytes # (Manual) 0.2 (0.0-0.8) Basophils # (Manual) 0.2 H (0.0-0.1) Nucleated RBCs # 0 K/uL INR 1.10 ABG pH (7.35-7.45) ABG pCO2 (35-45) mmHG ABG pO2 (75-100) mmHG ABG HCO3 (22-26) mEq/L ABG Total CO2 ABG Base Excess (-2.0-2.0) Lactate (0.20-2.00) mmol/L Sodium 139 (136-148) mmol/L Potassium 3.9 (3.5-5.1) mmol/L Chloride 105 (98-107) mmol/L Carbon Dioxide 26.3 (21.0-32.0) mmol/L BUN 20 H (7.0-18.0) mg/dL Creatinine 1.3 (0.8-1.3) mg/dL Est Cr Clr Drug Dosing 47.59 mL/min Estimated GFR (MDRD) 53.5 ml/min Glucose 153 H (74-106) mg/dL Calcium 9.0 (8.5-10.1) mg/dL Total Bilirubin 1.0 (0.2-1.0) mg/dL AST 16 (15-37) IU/L ALT 13 L (14-63) IU/L Alkaline Phosphatase 73 (46-116) U/L Troponin I < 0.050 (0.000-0.056) ng/mL B-Natriuretic Peptide (<100) PG/ML Total Protein 6.5 (6.4-8.2) g/dL Albumin 3.7 (3.4-5.0) g/dL Globulin 2.8 (2.6-4.0) g/dL Albumin/Globulin Ratio 1.3 (0.9-1.6) Urine Color Urine Appearance Urine pH (5.0-8.0) Ur Specific Sharon (1.001-1.035) Urine Protein (NEGATIVE) mg/dL Urine Glucose (UA) (NEGATIVE) mg/dL Urine Ketones (NEGATIVE) mg/dL Urine Occult Blood (NEGATIVE) Urine Nitrite (NEGATIVE) Urine Bilirubin (NEGATIVE) Urine Urobilinogen (<2.0) EU/dL Ur Leukocyte Esterase (NEGATIVE) 12/20/18 12/20/18 12/20/18 Range/Units 12:34 12:34 12:55 WBC (4.0-11.0) K/uL RBC (4.50-5.90) M/uL Hgb (13.0-17.0) g/dL Hct (38.0-50.0) % MCV (80.0-98.0) fL MCH (27.0-32.0) pg MCHC (31.0-37.0) g/dL RDW Std Deviation (28.0-62.0) fl RDW Coeff of Yaniv (11.0-15.0) % Plt Count (150-400) K/uL MPV (7.40-12.00) fL Neut % (Auto) (48.0-80.0) % Lymph % (Auto) (16.0-40.0) % Knott % (Auto) (0.0-15.0) % Eos % (Auto) (0.0-7.0) % Baso % (Auto) (0.0-1.5) % Neut # (Auto) (1.4-5.7) K/uL Lymph # (Auto) (0.6-2.4) K/uL Knott # (Auto) (0.0-0.8) K/uL Eos # (Auto) (0.0-0.7) K/uL Baso # (Auto) (0.0-0.1) K/uL Add Manual Diff Neutrophils % (Manual) (48.0-80.0) % Band Neutrophils % % Lymphocytes % (Manual) (16.0-40.0) % Monocytes % (Manual) (0.0-15.0) % Basophils % (Manual) (0.0-1.5) % Nucleated RBC % /100WBC Absolute Seg Neuts (1.4-5.7) Band Neutrophils # Lymphocytes # (Manual) (0.6-2.4) Monocytes # (Manual) (0.0-0.8) Basophils # (Manual) (0.0-0.1) Nucleated RBCs # K/uL INR ABG pH 7.414 (7.35-7.45) ABG pCO2 40 (35-45) mmHG ABG pO2 61 L (75-100) mmHG ABG HCO3 25 (22-26) mEq/L ABG Total CO2 22.2 ABG Base Excess 0.7 (-2.0-2.0) Lactate 2.0 (0.20-2.00) mmol/L Sodium (136-148) mmol/L Potassium (3.5-5.1) mmol/L Chloride (98-107) mmol/L Carbon Dioxide (21.0-32.0) mmol/L BUN (7.0-18.0) mg/dL Creatinine (0.8-1.3) mg/dL Est Cr Clr Drug Dosing mL/min Estimated GFR (MDRD) ml/min Glucose (74-106) mg/dL Calcium (8.5-10.1) mg/dL Total Bilirubin (0.2-1.0) mg/dL AST (15-37) IU/L ALT (14-63) IU/L Alkaline Phosphatase (46-116) U/L Troponin I (0.000-0.056) ng/mL B-Natriuretic Peptide 48 (<100) PG/ML Total Protein (6.4-8.2) g/dL Albumin (3.4-5.0) g/dL Globulin (2.6-4.0) g/dL Albumin/Globulin Ratio (0.9-1.6) Urine Color Urine Appearance Urine pH (5.0-8.0) Ur Specific Sharon (1.001-1.035) Urine Protein (NEGATIVE) mg/dL Urine Glucose (UA) (NEGATIVE) mg/dL Urine Ketones (NEGATIVE) mg/dL Urine Occult Blood (NEGATIVE) Urine Nitrite (NEGATIVE) Urine Bilirubin (NEGATIVE) Urine Urobilinogen (<2.0) EU/dL Ur Leukocyte Esterase (NEGATIVE) 12/20/18 12/21/18 12/21/18 Range/Units 13:01 05:50 05:50 WBC 12.91 H (4.0-11.0) K/uL RBC 4.62 (4.50-5.90) M/uL Hgb 14.1 (13.0-17.0) g/dL Hct 42.7 (38.0-50.0) % MCV 92.4 (80.0-98.0) fL MCH 30.5 (27.0-32.0) pg MCHC 33.0 (31.0-37.0) g/dL RDW Std Deviation 46.9 (28.0-62.0) fl RDW Coeff of Yaniv 14 (11.0-15.0) % Plt Count 120 L (150-400) K/uL MPV 10.60 (7.40-12.00) fL Neut % (Auto) 88.9 H (48.0-80.0) % Lymph % (Auto) 5.8 L (16.0-40.0) % Knott % (Auto) 5.1 (0.0-15.0) % Eos % (Auto) 0.1 (0.0-7.0) % Baso % (Auto) 0.1 (0.0-1.5) % Neut # (Auto) 11.5 H (1.4-5.7) K/uL Lymph # (Auto) 0.8 (0.6-2.4) K/uL Knott # (Auto) 0.7 (0.0-0.8) K/uL Eos # (Auto) 0.0 (0.0-0.7) K/uL Baso # (Auto) 0.0 (0.0-0.1) K/uL Add Manual Diff Neutrophils % (Manual) (48.0-80.0) % Band Neutrophils % % Lymphocytes % (Manual) (16.0-40.0) % Monocytes % (Manual) (0.0-15.0) % Basophils % (Manual) (0.0-1.5) % Nucleated RBC % 0.0 /100WBC Absolute Seg Neuts (1.4-5.7) Band Neutrophils # Lymphocytes # (Manual) (0.6-2.4) Monocytes # (Manual) (0.0-0.8) Basophils # (Manual) (0.0-0.1) Nucleated RBCs # 0 K/uL INR ABG pH (7.35-7.45) ABG pCO2 (35-45) mmHG ABG pO2 (75-100) mmHG ABG HCO3 (22-26) mEq/L ABG Total CO2 ABG Base Excess (-2.0-2.0) Lactate (0.20-2.00) mmol/L Sodium 139 (136-148) mmol/L Potassium 3.7 (3.5-5.1) mmol/L Chloride 107 (98-107) mmol/L Carbon Dioxide 25.6 (21.0-32.0) mmol/L BUN 16 (7.0-18.0) mg/dL Creatinine 1.2 (0.8-1.3) mg/dL Est Cr Clr Drug Dosing 51.55 mL/min Estimated GFR (MDRD) 58.7 ml/min Glucose 132 H (74-106) mg/dL Calcium 9.0 (8.5-10.1) mg/dL Total Bilirubin (0.2-1.0) mg/dL AST (15-37) IU/L ALT (14-63) IU/L Alkaline Phosphatase (46-116) U/L Troponin I (0.000-0.056) ng/mL B-Natriuretic Peptide (<100) PG/ML Total Protein (6.4-8.2) g/dL Albumin (3.4-5.0) g/dL Globulin (2.6-4.0) g/dL Albumin/Globulin Ratio (0.9-1.6) Urine Color YELLOW Urine Appearance CLEAR Urine pH 5.5 (5.0-8.0) Ur Specific Sharon 1.025 (1.001-1.035) Urine Protein NEGATIVE (NEGATIVE) mg/dL Urine Glucose (UA) NEGATIVE (NEGATIVE) mg/dL Urine Ketones NEGATIVE (NEGATIVE) mg/dL Urine Occult Blood NEGATIVE (NEGATIVE) Urine Nitrite NEGATIVE (NEGATIVE) Urine Bilirubin NEGATIVE (NEGATIVE) Urine Urobilinogen 0.2 (<2.0) EU/dL Ur Leukocyte Esterase NEGATIVE (NEGATIVE) Jurgen Results Last 24 Hours: Microbiology 12/20/18 18:55 Influenza Type A Antigen Screen - Final Nasopharyngeal Swab NEGATIVE INFLUENZA A VIRUS AG Influenza Type B Antigen Screen - Final NEGATIVE INFLUENZA B VIRUS AG 12/20/18 14:15 Gram Stain - Preliminary Sputum - Expectorated Med Orders - Current: Current Medications Aspirin (Aspirin) 81 mg PO DAILY [facility] Last Admin: 12/21/18 08:38 Dose: 81 mg Atorvastatin Calcium (Lipitor) 40 mg PO DAILY [facility] Last Admin: 12/21/18 08:38 Dose: 40 mg Benzonatate (Tessalon Perles) 100 mg PO TID PRN PRN Reason: Cough Last Admin: 12/21/18 06:22 Dose: 100 mg Clopidogrel Bisulfate (Plavix) 75 mg PO DAILY [facility] Last Admin: 12/21/18 08:38 Dose: 75 mg Cyclobenzaprine HCl (Flexeril) 10 mg PO DAILY PRN PRN Reason: Pain Heparin Sodium (Porcine) (Heparin Sodium) 5,000 units SUBCUT Q8H [facility] Last Admin: 12/21/18 06:09 Dose: 5,000 units Levofloxacin/Dextrose 750 mg/ (Premix) 150 mls @ 100 mls/hr IV Q24H [facility] Vancomycin HCl 1.25 gm/ Sodium (Chloride) 250 mls @ 166.667 mls/hr IV Q12H [facility] Last Admin: 12/21/18 01:28 Dose: 166.667 mls/hr Metoprolol Succinate (Toprol Xl) 100 mg PO DAILY [facility] Last Admin: 12/21/18 08:44 Dose: 100 mg Omeprazole (Omeprazole) 40 mg PO ACBREAKFAST [facility] Last Admin: 12/21/18 06:40 Dose: Not Given Ondansetron HCl (Zofran) 4 mg IVPUSH Q4H PRN PRN Reason: Nausea Fluticasone/Salmeterol (Advair Diskus 250-50) 1 puff INH BID [facility] Last Admin: 12/21/18 10:44 Dose: Not Given Sodium Chloride (Saline Flush) 10 ml FLUSH ASDIRECTED PRN PRN Reason: Keep Vein Open Sodium Chloride (Saline Flush) 2.5 ml FLUSH ASDIRECTED PRN PRN Reason: Keep Vein Open Discontinued Medications Albuterol/Ipratropium (Duoneb 3.0-0.5 Mg/3 Ml) Confirm Administered Dose 3 ml .ROUTE .STK-MED ONE Stop: 12/20/18 12:12 Last Admin: 12/20/18 12:17 Dose: 3 ml Levofloxacin/Dextrose 750 mg/ (Premix) 150 mls @ 100 mls/hr IV ONETIME ONE Stop: 12/20/18 14:51 Last Admin: 12/20/18 14:03 Dose: 100 mls/hr Vancomycin HCl 1 gm/ Sodium (Chloride) 250 mls @ 166 mls/hr IV ONETIME ONE Stop: 12/20/18 14:52 Last Admin: 12/20/18 14:27 Dose: 166 mls/hr Sodium Chloride (Normal Saline) 1,000 mls @ 999 mls/hr IV .Bolus ONE Stop: 12/20/18 14:23 Last Infusion: 12/20/18 14:06 Dose: 125 mls/hr Sodium Chloride (Normal Saline) 1,000 mls @ 125 mls/hr IV ASDIRECTED ADAN Last Admin: 12/21/18 07:58 Dose: 125 mls/hr Vancomycin HCl (Pharmacy To Dose - Vancomycin) 1 dose .XX ASDIRECTED ADAN - Exam General: Alert, Oriented Lungs: Clear to Auscultation, Normal Respiratory Effort Cardiovascular: Regular Rate, Regular Rhythm GI/Abdominal Exam: Soft, Non-Tender Extremities: Non-Tender, No Pedal Edema Skin: Warm, Dry, Intact - Problem List Review Problem List Initiated/Reviewed/Updated: Yes - My Orders Last 24 Hours: My Active Orders 12/20/18 14:01 Cyclobenzaprine [Flexeril] 10 mg PO DAILY PRN 12/20/18 14:04 Oxygen Therapy [RC] PRN Up ad Jessenia [RC] ASDIRECTED VTE/DVT Education [RC] PER UNIT ROUTINE Vital Signs [RC] Q4H Ondansetron [Zofran] 4 mg IVPUSH Q4H PRN Sequential Compression Device [OM.PC] Per Unit Routine Resuscitation Status Routine 12/20/18 14:05 Antiembolic Devices [RC] PER UNIT ROUTINE 12/20/18 14:15 CULTURE SPUTUM + SMEAR [RM] Routine Heparin Sodium 5,000 units SUBCUT Q8H 12/20/18 21:00 Fluticasone/Salmeterol [Advair Diskus 250-50] 1 puff INH BID 12/20/18 22:03 Benzonatate [Tessalon Perles] 100 mg PO TID PRN 12/21/18 07:30 Omeprazole 40 mg PO ACBREAKFAST 12/21/18 09:00 Aspirin 81 mg PO DAILY Clopidogrel [Plavix] 75 mg PO DAILY Metoprolol Succinate [Toprol XL] 100 mg PO DAILY atorvaSTATin [Lipitor] 40 mg PO DAILY 12/21/18 14:00 Levofloxacin/Dextrose 5%-Water [Levaquin in D5W 750 MG/150 ML] 750 mg Premix Bag 1 bag IV Q24H 12/22/18 05:11 BASIC METABOLIC PANEL,BMP [CHEM] AM CBC WITH AUTO DIFF [HEME] AM - Plan Plan:: 78 yo male admitted with pneumonia with hypoxia. We will continue vancomycin and Levaquin.
[2018-12-21] MEDS ORDERED: Levofloxacin/Dextrose 5%-Water 750 MG in Premix Bag 1 BAG IV SCH (14:00)
[2018-12-22] MEDS ORDERED: Vancomycin 1.5 GM in Sodium Chloride 0.9% 500 ML IV SCH (01:30)
[2018-12-22] MEDS: Omeprazole 20 MG Cap.CR PO SCH ×2 (05:40→06:35)
[2018-12-22] MEDS: Heparin Sodium 5,000 Units/ML Vial SUBCUT SCH (05:40)
[2018-12-22 06:40] LABS: CHLORIDE,CL 106 mmol/L (98-107); SODIUM,NA 138 mmol/L (136-148)
[2018-12-22] MEDS: Aspirin 81 MG Tab.Chew PO SCH (09:08)
[2018-12-22] MEDS: Clopidogrel 75 MG Tab PO SCH (09:08)
[2018-12-22] MEDS: Metoprolol Succinate 100 MG Tab.ER PO SCH (09:08)
[2018-12-22] MEDS: atorvaSTATin 40 MG Tab PO SCH (09:08)
[2018-12-22] MEDS: Fluticasone/Salmeterol 250-50 MCG Inhalation Powder 14/Diskus INH SCH (09:15)
--- NOTE | 2018-12-22 10:26 | PCM.DCSUM1 ---
Discharge Summary - Hospital Course Brief History: 78 yo male with pmh of CAD and COPD who presents with two week history of productive cough shortness of breath and fever. Diagnosis: Stroke: No - Discharge Data Discharge Date: 12/22/18 Discharge Disposition: Home, Self-Care 01 Condition: Stable - Patient Instructions Diet: Regular Diet as Tolerated Activity: As Tolerated, Rest and Relax Today Showering/Bathing: May Shower Notify Provider of: Fever, Increased Pain, Swelling and Redness, Drainage, Nausea and/or Vomiting - Discharge Plan *PRESCRIPTION DRUG MONITORING PROGRAM REVIEWED*: Not Applicable *COPY OF PRESCRIPTION DRUG MONITORING REPORT IN PATIENT EDUARDO: Not Applicable Prescriptions/Med Rec: Levofloxacin 750 mg PO DAILY #5 tablet Home Medications: Home Meds Clopidogrel [Plavix] 75 mg PO DAILY 09/12/15 [History] Fluticasone/Salmeterol [Advair 250-50] 1 puff INH BID 09/12/15 [History] Metoprolol Succinate [Toprol XL] 100 mg PO DAILY 09/12/15 [History] Omeprazole 40 mg PO ACBREAKFAST 09/12/15 [History] traMADol HCl [Tramadol HCl] 50 mg PO DAILY 09/12/15 [History] Aspirin 81 mg PO DAILY tab.chew 09/13/15 [Rx] amLODIPine Besylate [Amlodipine Besylate] 10 mg PO DAILY 09/13/15 [History] Albuterol Sulfate [Proair Hfa] 2 puff INH Q4H PRN 12/20/18 [History] Celecoxib 200 mg PO DAILY 12/20/18 [History] Cyclobenzaprine [Flexeril] 10 mg PO DAILY PRN 12/20/18 [History] Nitroglycerin [Nitrostat] 0.4 mg SL Q5M PRN 12/20/18 [History] Tamsulosin [Flomax] 0.4 mg PO DAILY 12/20/18 [History] atorvaSTATin [Lipitor] 40 mg PO DAILY 12/20/18 [History] Levofloxacin 750 mg PO DAILY #5 tablet 12/22/18 [Rx] Oxygen Therapy Mode: Room Air Patient Handouts: Levofloxacin tablets, Community-Acquired Pneumonia, Adult, [id number] Referrals: PCP,None [Primary Care Provider] - Harrison Ivory MD [Ordering Only Provider] - 12/29/18 10:30 am - Discharge Summary/Plan Comment DC Time >30 min.: No Discharge Summary/Plan Comment: Discharge Diagnoses: CAP CAD COPD Aaron was admitted secondary to hypoxic related to community acquired pneumonia. He was treated with Vancomycin and Levaquin. He continued to improve and is no longer requiring oxygen today. He reports have a looser cough now and is able to cough phlegm up finally and feels things are continuing to improve. He is requesting discharge. He will be discharged home today with 5 more days of Levaquin. He is to follow up with PCP in 1 week. Return to ED or clinic if concerns should arise. - General Info Date of Service: 12/22/18 Admission Dx/Problem (Free Text: Admission Diagnosis/Problem Admission Diagnosis/Problem Pneumonia Subjective Update: Reports feeling better today. Cough, but improving. currently on room air. No SOB. Very eager to be discharged home today. Functional Status: Reports: Pain Controlled, Tolerating Diet, Ambulating, Urinating - Review of Systems General: Reports: No Symptoms. Denies: Fever, Weakness, Fatigue HEENT: Reports: No Symptoms. Denies: Headaches, Sore Throat Pulmonary: Reports: Cough, Sputum. Denies: Shortness of Breath, Wheezing Cardiovascular: Reports: No Symptoms. Denies: Chest Pain, Edema Gastrointestinal: Reports: No Symptoms. Denies: Abdominal Pain, Nausea, Vomiting Genitourinary: Reports: No Symptoms. Denies: Dysuria, Frequency, Burning Musculoskeletal: Reports: No Symptoms Skin: Reports: No Symptoms Neurological: Reports: No Symptoms Psychiatric: Reports: No Symptoms - Patient Data Vitals - Most Recent: Last Vital Signs Temp 98.6 F 12/22/18 04:00 Pulse 62 12/22/18 09:08 Resp 20 12/22/18 04:00 BP 141/99 H 12/22/18 09:08 Pulse Ox 92 L 12/22/18 04:00 Weight - Most Recent: 77.1 kg I&O - Last 24 hours: Intake & Output 12/21/18 12/22/18 12/22/18 22:59 06:59 14:59 Intake Total 850 1100 Output Total 925 800 Balance -75 300 Lab Results - Last 24 hrs: Laboratory Results - last 24 hr 12/22/18 12/22/18 12/22/18 Range/Units 00:32 05:48 05:48 WBC 8.08 (4.0-11.0) K/uL RBC 4.62 (4.50-5.90) M/uL Hgb 14.3 (13.0-17.0) g/dL Hct 43.1 (38.0-50.0) % MCV 93.3 (80.0-98.0) fL MCH 31.0 (27.0-32.0) pg MCHC 33.2 (31.0-37.0) g/dL RDW Std Deviation 46.7 (28.0-62.0) fl RDW Coeff of Yaniv 14 (11.0-15.0) % Plt Count 121 L (150-400) K/uL MPV 10.80 (7.40-12.00) fL Neut % (Auto) 82.8 H (48.0-80.0) % Lymph % (Auto) 9.8 L (16.0-40.0) % Calloway % (Auto) 6.9 (0.0-15.0) % Eos % (Auto) 0.4 (0.0-7.0) % Baso % (Auto) 0.1 (0.0-1.5) % Neut # (Auto) 6.7 H (1.4-5.7) K/uL Lymph # (Auto) 0.8 (0.6-2.4) K/uL Calloway # (Auto) 0.6 (0.0-0.8) K/uL Eos # (Auto) 0.0 (0.0-0.7) K/uL Baso # (Auto) 0.0 (0.0-0.1) K/uL Nucleated RBC % 0.0 /100WBC Nucleated RBCs # 0 K/uL Sodium 138 (136-148) mmol/L Potassium 4.0 (3.5-5.1) mmol/L Chloride 106 (98-107) mmol/L Carbon Dioxide 28.4 (21.0-32.0) mmol/L BUN 13 (7.0-18.0) mg/dL Creatinine 1.1 (0.8-1.3) mg/dL Est Cr Clr Drug Dosing 56.24 mL/min Estimated GFR (MDRD) > 60.0 ml/min Glucose 115 H (74-106) mg/dL Calcium 9.2 (8.5-10.1) mg/dL Vancomycin Trough 11.0 H (5.0-10.0) ug/mL YAMILET Results - Last 24 hrs: Microbiology 12/20/18 14:15 Gram Stain - Final Sputum - Expectorated Sputum Culture - Final Normal Respiratory Marita 12/20/18 12:40 Aerobic Blood Culture - Preliminary Blood - Venous - Lab Draw NO GROWTH AFTER 1 DAY Anaerobic Blood Culture - Preliminary NO GROWTH AFTER 1 DAY 12/20/18 12:34 Aerobic Blood Culture - Preliminary Blood - Venous NO GROWTH AFTER 1 DAY Anaerobic Blood Culture - Preliminary NO GROWTH AFTER 1 DAY Med Orders - Current: Current Medications Aspirin (Aspirin) 81 mg PO DAILY [facility] Last Admin: 12/22/18 09:08 Dose: 81 mg Atorvastatin Calcium (Lipitor) 40 mg PO DAILY [facility] Last Admin: 12/22/18 09:08 Dose: 40 mg Benzonatate (Tessalon Perles) 100 mg PO TID PRN PRN Reason: Cough Last Admin: 12/21/18 06:22 Dose: 100 mg Clopidogrel Bisulfate (Plavix) 75 mg PO DAILY [facility] Last Admin: 12/22/18 09:08 Dose: 75 mg Cyclobenzaprine HCl (Flexeril) 10 mg PO DAILY PRN PRN Reason: Pain Heparin Sodium (Porcine) (Heparin Sodium) 5,000 units SUBCUT Q8H [facility] Last Admin: 12/22/18 05:40 Dose: 5,000 units Levofloxacin/Dextrose 750 mg/ (Premix) 150 mls @ 100 mls/hr IV Q24H [facility] Last Admin: 12/21/18 15:03 Dose: 100 mls/hr Vancomycin HCl 1.5 gm/ Sodium (Chloride) 500 mls @ 333.333 mls/hr IV Q12H [facility] Last Admin: 12/22/18 01:58 Dose: 333.333 mls/hr Metoprolol Succinate (Toprol Xl) 100 mg PO DAILY [facility] Last Admin: 12/22/18 09:08 Dose: 100 mg Omeprazole (Omeprazole) 40 mg PO ACBREAKFAST [facility] Last Admin: 12/22/18 06:35 Dose: Not Given Ondansetron HCl (Zofran) 4 mg IVPUSH Q4H PRN PRN Reason: Nausea Fluticasone/Salmeterol (Advair Diskus 250-50) 1 puff INH BID [facility] Last Admin: 12/22/18 09:15 Dose: Not Given Sodium Chloride (Saline Flush) 10 ml FLUSH ASDIRECTED PRN PRN Reason: Keep Vein Open Sodium Chloride (Saline Flush) 2.5 ml FLUSH ASDIRECTED PRN PRN Reason: Keep Vein Open Discontinued Medications Albuterol/Ipratropium (Duoneb 3.0-0.5 Mg/3 Ml) Confirm Administered Dose 3 ml .ROUTE .STK-MED ONE Stop: 12/20/18 12:12 Last Admin: 12/20/18 12:17 Dose: 3 ml Levofloxacin/Dextrose 750 mg/ (Premix) 150 mls @ 100 mls/hr IV ONETIME ONE Stop: 12/20/18 14:51 Last Admin: 12/20/18 14:03 Dose: 100 mls/hr Vancomycin HCl 1 gm/ Sodium (Chloride) 250 mls @ 166 mls/hr IV ONETIME ONE Stop: 12/20/18 14:52 Last Admin: 12/20/18 14:27 Dose: 166 mls/hr Sodium Chloride (Normal Saline) 1,000 mls @ 999 mls/hr IV .Bolus ONE Stop: 12/20/18 14:23 Last Infusion: 12/20/18 14:06 Dose: 125 mls/hr Sodium Chloride (Normal Saline) 1,000 mls @ 125 mls/hr IV ASDIRECTED [facility] Last Admin: 12/21/18 07:58 Dose: 125 mls/hr Vancomycin HCl 1.25 gm/ Sodium (Chloride) 250 mls @ 166.667 mls/hr IV Q12H [facility] Last Admin: 12/21/18 13:12 Dose: 166.667 mls/hr Vancomycin HCl (Pharmacy To Dose - Vancomycin) 1 dose .XX ASDIRECTED [facility] - Exam General: Reports: Alert, Oriented, Cooperative, No Acute Distress Neck: Reports: Supple Lungs: Reports: Clear to Auscultation, Normal Respiratory Effort Cardiovascular: Reports: Regular Rate, Regular Rhythm GI/Abdominal Exam: Normal Bowel Sounds, Soft, Non-Tender, No Organomegaly Back Exam: Reports: Normal Inspection, Full Range of Motion Wound/Incisions: Reports: Healing Well Neurological: Reports: No New Focal Deficit Psy/Mental Status: Reports: Alert, Normal Affect, Normal Mood
[2018-12-22 11:45] VITALS: BP 130/66
== END 2018-12-22 12:20 | disposition home or self-care (01) | DRG 190 ==
LOC: MW.ED 12:09 → MW.MS 14:10
PROVIDERS: ADMIT Internal Medicine; ATTEND Internal Medicine
DX: J44.0 Chronic obstructive pulmonary disease with (acute) lower respiratory infection (principal); J18.9 Pneumonia, unspecified organism; I25.10 Atherosclerotic heart disease of native coronary artery without angina pectoris; I10 Essential (primary) hypertension; R09.02 Hypoxemia; H54.7 Unspecified visual loss; M19.90 Unspecified osteoarthritis, unspecified site; E78.00 Pure hypercholesterolemia, unspecified; Z85.819 Personal history of malignant neoplasm of unspecified site of lip, oral cavity, and pharynx; R06.02 Shortness of breath; R06.00 Dyspnea, unspecified; Z79.02 Long term (current) use of antithrombotics/antiplatelets; Z79.899 Other long term (current) drug therapy; Z90.49 Acquired absence of other specified parts of digestive tract; Z87.01 Personal history of pneumonia (recurrent); Z86.73 Personal history of transient ischemic attack (TIA), and cerebral infarction without residual deficits; Z87.891 Personal history of nicotine dependence
CPT/HCPCS: 36415; 36600; 71045; 80053; 81003; 82803; 83605; 83880; 84484; 85025; 85610; 87040 ×2; 93005; 96365; 99285; J1956; J7040; 80048; 80202; 87070; 87205; 87804; 96374; A9270-GY; J1644; J3370; J7050; J7620-GY

== ENCOUNTER 2021-01-05 07:40 | Emergency (ER) | payer MEDICARE, BC ==
[2021-01-05] MEDS ORDERED: EPINEPHrine 1 MG/ML SDV ONE (07:45)
[2021-01-05] MEDS ORDERED: Famotidine 20 MG/2 ML SDV IVPUSH ONE (07:46)
[2021-01-05] MEDS ORDERED: EPINEPHrine 1 MG/ML SDV IM ONE (07:49)
[2021-01-05] MEDS ORDERED: diphenhydrAMINE 50 MG/ML SDV IVPUSH ONE (07:51)
[2021-01-05] MEDS ORDERED: diphenhydrAMINE 50 MG/ML SDV ONE (07:52)
[2021-01-05] MEDS ORDERED: EPINEPHrine 1 MG/ML 30 ML MDV IM ONE (07:55)
[2021-01-05] MEDS ORDERED: Sodium Chloride 0.9% 1,000 ML IV ONE ×2 (07:56→09:34)
--- NOTE | 2021-01-05 07:59 | EDM.PDOC ---
ED HPI GENERAL MEDICAL PROBLEM - General Stated Complaint: SHORTNESS OF BREATH Time Seen by Provider: 01/05/21 07:45 Source of Information: Reports: Patient History Limitations: Reports: No Limitations - History of Present Illness INITIAL COMMENTS - FREE TEXT/NARRATIVE: 80-year-old male with history of HTN, CAD with stents, COPD presents with angioedema. He started taking levofloxacin at 5PM yesterday for "lung infection" and started noticing around 2 AM in the morning that his tongue was swollen. He has had previous episodes like this before. He took prednisone 100 mg and Benadryl 25 mg prior to arrival with no relief. He denies shortness of breath, nausea, vomiting, diarrhea, abdominal pain or chest pain. ROS: A 10-point review of systems, other than pertinent positives and negatives as stated per HPI, is otherwise negative Past medical history: No additional pertinent history Past Surgical history: No additional pertinent history Social history: No additional pertinent history Family history: No additional pertinent history PHYSICAL EXAM General: AOx4, GCS = 15, No distress HEENT: dry mucous membrane, Mallampati score = 4, diffuse tongue swelling. No stridor, trace hoarseness. Not drooling Neck: supple, no meningismus, no Kernig or Brudzinski Cardiac: S1S2 RRR Respiratory: CTAB, no crackles or rales, no wheezing Abdomen: Soft, nontender, no rebound or guarding, nondistended, no pulsatile mass. Back: nontender Musculoskeletal: NVI distally, no deformity Neuro: No focal deficits, CN 2 - 12 WNL. - Related Data Allergies Allergy/AdvReac Type Severity Reaction Status Date / Time No Known Allergies Allergy Verified 01/05/21 07:53 Home Meds: Home Meds Clopidogrel [Plavix] 75 mg PO DAILY 09/12/15 [History] Fluticasone/Salmeterol [Advair 250-50] 1 puff INH BID 09/12/15 [History] Metoprolol Succinate [Toprol XL] 100 mg PO DAILY 09/12/15 [History] Omeprazole 40 mg PO ACBREAKFAST 09/12/15 [History] traMADol HCl [Tramadol HCl] 50 mg PO DAILY 09/12/15 [History] Aspirin 81 mg PO DAILY tab.chew 09/13/15 [Rx] amLODIPine Besylate [Amlodipine Besylate] 10 mg PO DAILY 09/13/15 [History] Albuterol Sulfate [Proair Hfa] 2 puff INH Q4H PRN 12/20/18 [History] Celecoxib 200 mg PO DAILY 12/20/18 [History] Cyclobenzaprine [Flexeril] 10 mg PO DAILY PRN 12/20/18 [History] Nitroglycerin [Nitrostat] 0.4 mg SL Q5M PRN 12/20/18 [History] Tamsulosin [Flomax] 0.4 mg PO DAILY 12/20/18 [History] atorvaSTATin [Lipitor] 40 mg PO DAILY 12/20/18 [History] Levofloxacin 750 mg PO DAILY #5 tablet 12/22/18 [Rx] EPINEPHrine [Epipen 2-Sandeep] 0.3 mg IJ ASDIRECTED PRN #1 auto.injct 01/05/21 [Rx] Past Medical History HEENT History: Reports: Impaired Vision, Other (See Below) Other HEENT History: wears glasses Cardiovascular History: Reports: High Cholesterol, Hypertension, Stents Respiratory History: Reports: COPD, Pneumonia, Recurrent Gastrointestinal History: Reports: Other (See Below) Other Gastrointestinal History: fistula Genitourinary History: Reports: None Musculoskeletal History: Reports: Arthritis Neurological History: Reports: CVA Psychiatric History: Reports: None Endocrine/Metabolic History: Reports: None Hematologic History: Reports: None Immunologic History: Reports: None Oncologic (Cancer) History: Reports: Other (See Below) Other Oncologic History: cancer of "voice box" Dermatologic History: Reports: None - Infectious Disease History Infectious Disease History: Reports: Chicken Pox, Measles, Mumps - Past Surgical History Other GI Surgeries/Procedures: colon resection Other Male Surgeries/Procedures: colon/bladder fistula surgery Social & Family History - Family History Family Medical History: No Pertinent Family History - Caffeine Use Caffeine Use: Reports: Coffee ED ROS GENERAL - Review of Systems Review Of Systems: See Below (see dictation) ED EXAM, GENERAL - Physical Exam Exam: See Below (see dictation) #1 Interpretation EKG Interpretation Comments: Heart rate = 84 bpm, RBBB, normal sinus rhythm, normal QRS interval, no STEMI. EKG and rhythm strip interpreted by me at 0920 Course - Vital Signs Last Recorded V/S: Last Vital Signs Temp 97.7 F 01/05/21 07:50 Pulse 91 01/05/21 08:59 Resp 18 01/05/21 08:59 BP 196/64 H 01/05/21 08:59 Pulse Ox 90 L 01/05/21 08:59 - Orders/Labs/Meds Orders: Active Orders 24 hr Category Date Time Status Patient Status [ADT] Routine ADT 01/05/21 10:07 Ordered EKG 12 Lead [EKG Documentation Completion] [RC] STAT Care 01/05/21 09:12 Active CORONAVIRUS COVID-19 ROLY [MOLEC] Stat Lab 01/05/21 09:45 Received Sodium Chloride 0.9% [Normal Saline] 1,000 ml Med 01/05/21 09:34 Active IV .Bolus Medication Orders Sodium Chloride (Normal Saline) 1,000 mls @ 999 mls/hr IV .Bolus ONE Stop: 01/05/21 10:34 Last Admin: 01/05/21 09:36 Dose: 999 mls/hr Documented by: [email or web address] Labs: Laboratory Tests 01/05/21 01/05/21 01/05/21 Range/Units 07:46 07:46 09:24 WBC 9.44 (4.0-11.0) K/uL RBC 5.13 (4.50-5.90) M/uL Hgb 16.6 (13.0-17.0) g/dL Hct 50.1 H (38.0-50.0) % MCV 97.7 (80.0-98.0) fL MCH 32.4 H (27.0-32.0) pg MCHC 33.1 (31.0-37.0) g/dL RDW Std Deviation 48.3 (28.0-62.0) fl RDW Coeff of Yaniv 14 (11.0-15.0) % Plt Count 184 (150-400) K/uL MPV 10.90 (7.40-12.00) fL Neut % (Auto) 87.4 H (48.0-80.0) % Lymph % (Auto) 7.9 L (16.0-40.0) % Piatt % (Auto) 4.1 (0.0-15.0) % Eos % (Auto) 0.5 (0.0-7.0) % Baso % (Auto) 0.1 (0.0-1.5) % Neut # (Auto) 8.2 H (1.4-5.7) K/uL Lymph # (Auto) 0.8 (0.6-2.4) K/uL Piatt # (Auto) 0.4 (0.0-0.8) K/uL Eos # (Auto) 0.1 (0.0-0.7) K/uL Baso # (Auto) 0.0 (0.0-0.1) K/uL Nucleated RBC % 0.0 /100WBC Nucleated RBCs # 0 K/uL Sodium 144 (136-148) mmol/L Potassium 4.0 (3.5-5.1) mmol/L Chloride 104 (98-107) mmol/L Carbon Dioxide 30.5 (21.0-32.0) mmol/L BUN 20 H (7.0-18.0) mg/dL Creatinine 1.5 H (0.8-1.3) mg/dL Est Cr Clr Drug Dosing 37.33 mL/min Estimated GFR (MDRD) 45.1 ml/min Glucose 136 H (74-106) mg/dL Calcium 9.2 (8.5-10.1) mg/dL Total Bilirubin 0.9 (0.2-1.0) mg/dL AST 17 (15-37) IU/L ALT 20 (14-63) IU/L Alkaline Phosphatase 81 (46-116) U/L Troponin I < 0.050 (0.000-0.056) ng/mL Total Protein 7.5 (6.4-8.2) g/dL Albumin 3.6 (3.4-5.0) g/dL Globulin 3.9 (2.6-4.0) g/dL Albumin/Globulin Ratio 0.9 (0.9-1.6) Meds: Medications Generic Name Dose Route Start Last Admin Trade Name Freq PRN Reason Stop Dose Admin Sodium Chloride 1,000 mls @ 999 mls/hr 01/05/21 09:34 01/05/21 09:36 Normal Saline IV 01/05/21 10:34 999 mls/hr .Bolus ONE Administration Discontinued Medications Generic Name Dose Route Start Last Admin Trade Name Karsten PRN Reason Stop Dose Admin Diphenhydramine HCl 25 mg 01/05/21 07:51 01/05/21 07:55 Benadryl IVPUSH 01/05/21 07:52 25 mg ONETIME ONE Administration Diphenhydramine HCl Confirm 01/05/21 07:52 01/05/21 07:58 Benadryl Administered 01/05/21 07:53 Not Given Dose 50 mg .ROUTE .STK-MED ONE Epinephrine HCl Confirm 01/05/21 07:45 01/05/21 07:57 Adrenalin Administered 01/05/21 07:46 Not Given Dose 1 mg .ROUTE .STK-MED ONE Epinephrine HCl 0.5 mg 01/05/21 07:49 01/05/21 07:57 Adrenalin IM 01/05/21 07:50 0.5 mg ONETIME ONE Administration Epinephrine HCl 1 mg 01/05/21 07:55 01/05/21 07:56 Adrenalin IM 01/05/21 07:56 Not Given NOW ONE Famotidine 20 mg 01/05/21 07:46 01/05/21 07:58 Pepcid IVPUSH 01/05/21 07:47 20 mg ONETIME ONE Administration Sodium Chloride 1,000 mls @ 999 mls/hr 01/05/21 08:00 Normal Saline IV .BOLUS ADAN Sodium Chloride 1,000 mls @ 1,000 mls/hr 01/05/21 07:56 01/05/21 07:58 Normal Saline IV 01/05/21 08:55 1,000 mls/hr .Bolus ONE Administration Sodium Chloride 1,000 mls @ 999 mls/hr 01/05/21 08:54 01/05/21 09:36 Normal Saline IV 01/05/21 09:54 Not Given STAT STA Methylprednisolone Sodium Succinate 125 mg 01/05/21 09:07 01/05/21 09:31 Solu-Medrol IVPUSH 01/05/21 09:08 125 mg ONETIME ONE Administration - Re-Assessments/Exams Free Text/Narrative Re-Assessment/Exam: 01/05/21 08:05 I reassessed the patient, patient given IM epinephrine, Benadryl 25 mg IV, Pepcid 20 mg IV, patient is talking in full sentences in no distress despite tongue swelling. 01/05/21 09:[address] Hernadez, who agrees to admit patient. The hospitalist's documentation supersedes all other documentation on this patient with regard to any conflicts or discrepancies from this point forward. Any emergency conditions have been treated to the ability of the ED prior to admission. 01/05/21 09:23 Patient now states about 30 minutes prior, he experienced left sided radiating sharp chest pain rated 2/10, his pain only lasted 20 seconds and he is currently pain free. He felt like his heart was racing. He currently has no chest pain. EKG and troponin ordered. d/w Dr. Hernadez, will hold admission until troponin results. 01/05/21 10:11 Troponin is unremarkable, patient stable for admission for observation telemetry status. MEDICAL DECISION MAKING: I reviewed the patients past medical records, lab and radiographic findings. I discussed the case with the patient. My differential diagnosis included: Angioedema, hereditary angioedema, medication reaction. Departure - Departure Time of Disposition: 09:40 Disposition: Refer to Observation Condition: Good Clinical Impression: Angioedema - Discharge Information *PRESCRIPTION DRUG MONITORING PROGRAM REVIEWED*: Not Applicable *COPY OF PRESCRIPTION DRUG MONITORING REPORT IN PATIENT EDUARDO: Not Applicable Prescriptions: EPINEPHrine [Epipen 2-Sandeep] 0.3 mg IJ ASDIRECTED PRN #1 auto.injct PRN Reason: Allergies Instructions: Angioedema, [id number] Referrals: Dagoberto Jacobsen MD [Primary Care Provider] - 1 Day Forms: ED Department Discharge Critical Care Note - Critical Care Note Total Time (mins): 40 Comments: CRITCAL CARE: The high probability of sudden, clinically significant deterioration in the patient's condition required the highest level of my preparedness to intervene urgently. The services I provided to this patient were to treat and/or prevent clinically significant deterioration. Services included the following: chart data review, reviewing nursing notes and/or old charts, documentation time, senior research consultant collaboration regarding findings and treatment options, medication orders and management, direct patient care, vital sign assessments and ordering, interpreting and reviewing diagnostic studies/lab tests. Aggregate critical care time includes only time during which I was engaged in work directly related to the patient's care, as described above, whether at the bedside or elsewhere in the Emergency Department. It did not include time spent performing other reported procedures or the services of residents, students, nurses or physician assistants. Frequent interventions and/or frequent repeat evaluations were required as well as counseling and coordination of care regarding prognosis, treatments, and discussions with patient, staff and consultants. Critical Care (excluding other procedures): 40 minutes Sepsis Event Note (ED) - Focused Exam Vital Signs: Vital Signs Temp Pulse Resp BP Pulse Ox 01/05/21 08:59 91 18 196/64 H 90 L 01/05/21 07:50 97.7 F 76 18 172/66 H 93 L - My Orders Last 24 Hours: My Active Orders 01/05/21 09:12 EKG 12 Lead [EKG Documentation Completion] [RC] STAT 01/05/21 09:34 Sodium Chloride 0.9% [Normal Saline] 1,000 ml IV .Bolus 01/05/21 09:45 CORONAVIRUS COVID-19 ROLY [MOLEC] Stat 01/05/21 10:07 Patient Status [ADT] Routine - Assessment/Plan Last 24 Hours: My Active Orders 01/05/21 09:12 EKG 12 Lead [EKG Documentation Completion] [RC] STAT 01/05/21 09:34 Sodium Chloride 0.9% [Normal Saline] 1,000 ml IV .Bolus 01/05/21 09:45 CORONAVIRUS COVID-19 ROLY [MOLEC] Stat 01/05/21 10:07 Patient Status [ADT] Routine
[2021-01-05] MEDS ORDERED: Sodium Chloride 0.9% 1,000 ML IV SCH (08:00)
[2021-01-05 08:16] LABS: CARBON DIOXIDE,CO2 30.5 mmol/L (21.0-32.0)
[2021-01-05] MEDS ORDERED: Sodium Chloride 0.9% 1,000 ML IV STA (08:54)
[2021-01-05] MEDS ORDERED: methylPREDNISolone Sodium Succinate 125 MG/2 ML SDV IVPUSH ONE (09:07)
--- NOTE | 2021-01-05 09:43 | CR ---
HISTORY: Chest pain. TECHNIQUE: Portable frontal view the chest. COMPARISON: Chest x-ray 12/20/2018. FINDINGS: Mild left basilar atelectasis. No airspace consolidation. No pleural effusion or pneumothorax. Pulmonary vasculature and cardiomediastinal silhouette are within normal limits. IMPRESSION: Mild left basilar atelectasis. Dictated by Gold Rhodes MD @ Jan 05 2021 9:42AM Signed by Dr. Gold Rhodes @ Jan 05 2021 9:42AM
[2021-01-05] MEDS ORDERED: Iopamidol 755 MG/ML 500 ML Multipack Bottle IVPUSH STA (11:39)
[2021-01-05] MEDS ORDERED: propofoL 100 ML ONE (11:42)
[2021-01-05] MEDS ORDERED: Albuterol 0.083% 2.5 MG/3 ML Neb Soln NEB PRN (11:46)
[2021-01-05] MEDS ORDERED: Acetaminophen 325 MG Tab PO PRN (11:46)
[2021-01-05] MEDS ORDERED: Ondansetron 4 MG/2 ML SDV IVPUSH PRN (11:46)
[2021-01-05] MEDS ORDERED: Docusate Sodium 100 MG Cap PO PRN (11:46)
[2021-01-05] MEDS ORDERED: Famotidine 20 MG Tab PO SCH (12:00)
[2021-01-05] MEDS ORDERED: diphenhydrAMINE 25 MG Cap PO SCH (12:00)
[2021-01-05] MEDS ORDERED: Loratadine 10 MG Tab PO SCH (12:00)
--- NOTE | 2021-01-05 12:05 | CT ---
INDICATION: Swelling. TECHNIQUE: Performed with IV contrast. Contrast: 75 cc Isovue 370 COMPARISON: None FINDINGS: There is extensive low attenuation infiltration of the tongue and both subjacent sublingual spaces, accompanied by mild generalized soft tissue mass effect. The low-attenuation changes also extend into both submandibular spaces, obliterating the tissue planes around both submandibular glands. No definite defined or peripherally enhancing fluid collection is localized on today`s study. The appearance is compatible with widespread cellulitis/phlegmon. No mucosal pathology is identified in the pharynx or larynx. No solid masses identified. Normal size lymph nodes are scattered along both sides of the neck. The parotid glands and thyroid gland are symmetric and unremarkable. No abnormal contrast enhancement is identified. No worrisome skeletal lesions are identified. The visualized portions of the intracranial contents and apical hemithoraces are unremarkable. IMPRESSION: 1. Extensive low-attenuation infiltration of the oral tongue and the sublingual spaces on both sides, accompanied by soft tissue mass effect. Some extension of the changes into the submandibular space. The appearance is compatible with widespread phlegmon. 2. No defined abscess is localized on this exam. Please note that all CT scans at this facility use dose modulation, iterative reconstruction, and/or weight-based dosing when appropriate to reduce radiation dose to as low as reasonably achievable. Dictated by Neil Cespedse MD @ Jan 05 2021 11:49AM Signed by Dr. Neil Cespedes @ Jan 05 2021 12:03PM
--- NOTE | 2021-01-05 12:43 | CR ---
INDICATION: Post intubation COMPARISON: Earlier the same day and more remotely, December 20 2018 TECHNIQUE: PA and lateral views of the chest were acquired FINDINGS: TUBES AND LINES: Endotracheal tube normally located ending about 5.5 centimeters from the naeem HEART AND MEDIASTINUM: Heart size normal. Chronic stable prominence of the kamari likely due to enlarged central pulmonary arteries. This probably indicates pulmonary hypertension.. LUNGS AND PLEURAL SPACES: The lungs appear normal.The pleural spaces are unremarkable. OSSEOUS STRUCTURES: Age-appropriate appearance. No acute focal finding. IMPRESSION: 1. Endotracheal tube normally located ending 5.5 centimeters from the naeem. 2. Lungs and pleural spaces appear normal. 3. Enlarged central pulmonary arteries likely indicating pulmonary hypertension. Dictated by Hernesto Ferrera MD @ Jan 05 2021 12:39PM Signed by Dr. Hernesto Ferrera @ Jan 05 2021 12:41PM
[2021-01-05] MEDS ORDERED: Succinylcholine 200 MG/10 ML MDV IV STA (13:02)
[2021-01-05] MEDS ORDERED: Etomidate 2 MG/ML 20 ML SDV IVPUSH ONE (13:07)
--- NOTE | 2021-01-05 14:27 | PCM.PRNOTE ---
- Free Text/Narrative Note: Anes Note I was called to ER for emergency intubation. Pre O2 x 3 minutes. Meds 20 mg etomidate at 1152 100 anectine at 1152 Intubation single attempt with ease using Glidescope. BBS checked and equal Tube secured at 20 cm at gums. Time with patient [id number] Michael Brar CRNA
[2021-01-05] MEDS ORDERED: Succinylcholine 200 MG/10 ML MDV IV ONE (15:35)
[2021-01-05] MEDS ORDERED: propofoL 100 ML IV SCH (15:45)
[2021-01-05 15:50] VITALS: BP 202/84; PULSE 86
[2021-01-06] MEDS ORDERED: Famotidine 20 MG Tab PO SCH (09:00)
== END 2021-01-05 12:30 | disposition other institution (70) ==
LOC: MW.ED 07:40 → MW.MS 10:59 → UNDOADMOB 10:59 → MW.ED 12:30
DX: T78.3XXA Angioneurotic edema, initial encounter (principal); I10 Essential (primary) hypertension; E78.00 Pure hypercholesterolemia, unspecified; J44.9 Chronic obstructive pulmonary disease, unspecified; I25.10 Atherosclerotic heart disease of native coronary artery without angina pectoris; M19.90 Unspecified osteoarthritis, unspecified site; Z95.5 Presence of coronary angioplasty implant and graft; Z79.02 Long term (current) use of antithrombotics/antiplatelets; Z79.82 Long term (current) use of aspirin; Z79.899 Other long term (current) drug therapy; Z86.73 Personal history of transient ischemic attack (TIA), and cerebral infarction without residual deficits; Z20.822 Contact with and (suspected) exposure to COVID-19
CPT/HCPCS: 31500; 36415; 43752; 51702; 70491; 71045; 80053; 84484; 85025; 93005; 94002; 96374; 96375; 99285; J0171; J0330; J1200; J2704; J2930; J3490; J7030; U0002; 93010; 99291

== ENCOUNTER 2022-06-27 05:47 | Observation (INO) | payer MEDICARE, BC ==
[2022-06-27] MEDS ORDERED: EPINEPHrine 1 MG/1 ML Amp ONE (05:52)
[2022-06-27] MEDS ORDERED: diphenhydrAMINE 50 MG/ML SDV IVPUSH STA (05:59)
[2022-06-27] MEDS ORDERED: methylPREDNISolone Sodium Succinate 125 MG/2 ML SDV IVPUSH STA (06:00)
[2022-06-27] MEDS: methylPREDNISolone Sodium Succinate 125 MG/2 ML SDV ONE ×2 (06:01→06:26)
[2022-06-27] MEDS: diphenhydrAMINE 50 MG/ML SDV ONE ×2 (06:01→06:26)
[2022-06-27 10:38] VITALS: PULSE 62
[2022-06-27] MEDS ORDERED: Ondansetron 4 MG/2 ML SDV IVPUSH PRN (11:59)
[2022-06-27] MEDS ORDERED: Polyethylene Glycol 3350 Powder 17 GM Packet PO PRN (11:59)
[2022-06-27] MEDS ORDERED: Albuterol/Ipratropium 3.0-0.5 MG/3 ML Neb Soln NEB PRN (11:59)
[2022-06-27] MEDS ORDERED: Acetaminophen 325 MG Tab PO PRN (11:59)
[2022-06-27] MEDS ORDERED: Albuterol 8 GM Inhaler INH PRN (12:40)
[2022-06-27] MEDS ORDERED: Nitroglycerin 0.4 MG Tab.SL SL PRN (12:40)
[2022-06-27 13:11] LABS: CARBON DIOXIDE,CO2 27.9 mmol/L (21.0-32.0); POTASSIUM,K 4.1 mmol/L (3.5-5.1)
[2022-06-27] MEDS ORDERED: diphenhydrAMINE 50 MG/ML SDV IVPUSH PRN (14:58)
[2022-06-27] MEDS ORDERED: EPINEPHrine 1 MG/1 ML Amp IM PRN (15:14)
[2022-06-27] MEDS: Clopidogrel 75 MG Tab PO SCH (17:22)
[2022-06-27] MEDS: amLODIPine 5 MG Tab PO SCH (17:22)
[2022-06-27] MEDS: Metoprolol Succinate 100 MG Tab.ER PO SCH (17:22)
[2022-06-27] MEDS: methylPREDNISolone Sodium Succinate 40 MG/1 ML SDV IVPUSH SCH (20:42)
[2022-06-27] MEDS: Fluticasone/Salmeterol 250-50 MCG Inhalation Powder 14/Diskus INH SCH (20:53)
[2022-06-27] MEDS ORDERED: atorvaSTATin 40 MG Tab PO SCH (21:00)
[2022-06-28 05:40] LABS: CARBON DIOXIDE,CO2 27.9 mmol/L (21.0-32.0); POTASSIUM,K 4.4 mmol/L (3.5-5.1)
[2022-06-28] MEDS ORDERED: Cetirizine 10 MG Tab PO SCH (09:00)
[2022-06-28] MEDS ORDERED: amLODIPine 5 MG Tab PO SCH (09:00)
[2022-06-28] MEDS ORDERED: Aspirin 81 MG Tab.Chew PO SCH (09:00)
[2022-06-28] MEDS: Metoprolol Succinate 100 MG Tab.ER PO SCH (09:28)
[2022-06-28] MEDS: Clopidogrel 75 MG Tab PO SCH (09:28)
[2022-06-28] MEDS: amLODIPine 5 MG Tab PO SCH (09:28)
[2022-06-28] MEDS: methylPREDNISolone Sodium Succinate 40 MG/1 ML SDV IVPUSH SCH (09:28)
[2022-06-28] MEDS: Fluticasone/Salmeterol 250-50 MCG Inhalation Powder 14/Diskus INH SCH (09:28)
[2022-06-28 10:07] VITALS: BP 153/73
== END 2022-06-28 10:45 | disposition home or self-care (01) ==
LOC: MW.ED 05:47 → MW.ICU 11:32
PROVIDERS: ADMIT Internal Medicine; ATTEND Internal Medicine
DX: T78.3XXA Angioneurotic edema, initial encounter (principal); K14.8 Other diseases of tongue; I10 Essential (primary) hypertension; I25.10 Atherosclerotic heart disease of native coronary artery without angina pectoris; J44.9 Chronic obstructive pulmonary disease, unspecified; F17.210 Nicotine dependence, cigarettes, uncomplicated; E78.00 Pure hypercholesterolemia, unspecified; Z79.899 Other long term (current) drug therapy; Z20.822 Contact with and (suspected) exposure to COVID-19; Z86.73 Personal history of transient ischemic attack (TIA), and cerebral infarction without residual deficits
CPT/HCPCS: 36415; 36430; 80053; 83735; 85025; 85610; 85730; 86850; 86900; 86901; J1200; J2920; J2930; P9017; U0002; J0171

== ENCOUNTER 2023-02-11 08:23 | Inpatient (IN) | payer MEDICARE, BC ==
[2023-02-11] MEDS ORDERED: Sodium Chloride 0.9% 2.5 ML Syringe FLUSH PRN (09:08)
[2023-02-11] MEDS ORDERED: Sodium Chloride 0.9% 1,000 ML IV ONE (09:08)
[2023-02-11] MEDS ORDERED: Sodium Chloride 0.9% 10 ML Syringe FLUSH PRN (09:08)
[2023-02-11] MEDS ORDERED: Ondansetron 4 MG/2 ML SDV IVPUSH ONE ×2 (09:08→10:40)
[2023-02-11 09:40] LABS: CARBON DIOXIDE,CO2 30.7 mmol/L (21.0-32.0); POTASSIUM,K 4.6 mmol/L (3.5-5.1)
[2023-02-11] MEDS ORDERED: Iopamidol 755 MG/ML 500 ML Multipack Bottle IVPUSH ONE (10:07)
[2023-02-11] MEDS ORDERED: Piperacillin/Tazobactam 3.375 GM in Sodium Chloride 0.9% 100 ML IV ONE (10:48)
[2023-02-11] MEDS ORDERED: HYDROmorphone 1 MG/ML Syringe IVPUSH ONE (11:06)
[2023-02-11] MEDS ORDERED: Acetaminophen 650 MG Supp RECTAL PRN (11:29)
[2023-02-11] MEDS ORDERED: Morphine 2 MG/ML SYRINGE IVPUSH PRN (11:29)
[2023-02-11] MEDS ORDERED: Acetaminophen 325 MG Tab PO PRN (11:29)
[2023-02-11] MEDS: Pantoprazole 40 MG in Sodium Chloride 0.9% 10 ML IVPUSH SCH (12:32)
[2023-02-11] MEDS: Enoxaparin 40 MG/0.4 ML Syringe SUBCUT SCH (12:33)
[2023-02-11] MEDS: Sodium Chloride 0.9% 1,000 ML IV SCH ×2 (12:39→23:54)
[2023-02-11] MEDS: Nicotine 14 MG/24 Hr Patch TRDERM SCH (13:40)
[2023-02-11] MEDS ORDERED: Albuterol 8 GM Inhaler INH PRN (13:41)
[2023-02-11] MEDS: Piperacillin/Tazobactam 4.5 GM in Sodium Chloride 0.9% 100 ML IV SCH (18:23)
[2023-02-11] MEDS: FLUTICASONE INH SCH (21:59)
[2023-02-11] MEDS: SALMETEROL INH SCH (21:59)
[2023-02-11] MEDS: [UNRECOGNIZED DRUG - OTHER] INH SCH (21:59)
[2023-02-12] MEDS: Ondansetron 4 MG/2 ML SDV IVPUSH PRN ×3 (00:58→21:03)
[2023-02-12] MEDS: Piperacillin/Tazobactam 4.5 GM in Sodium Chloride 0.9% 100 ML IV SCH ×3 (03:00→19:04)
[2023-02-12 07:06] LABS: POTASSIUM,K 4.6 mmol/L (3.5-5.1)
[2023-02-12] MEDS: hydrALAZINE 20 MG/ML SDV IVPUSH PRN (08:39)
[2023-02-12] MEDS: Nicotine 14 MG/24 Hr Patch TRDERM SCH (08:39)
[2023-02-12] MEDS: [UNRECOGNIZED DRUG - OTHER] INH SCH ×2 (08:48→21:37)
[2023-02-12] MEDS: SALMETEROL INH SCH ×2 (08:48→21:37)
[2023-02-12] MEDS: FLUTICASONE INH SCH ×2 (08:48→21:37)
[2023-02-12] MEDS: Enoxaparin 40 MG/0.4 ML Syringe SUBCUT SCH (10:30)
[2023-02-12] MEDS: Sodium Chloride 0.9% 1,000 ML IV SCH ×2 (10:32→18:04)
[2023-02-12] MEDS: Metoprolol Tartrate 5 MG/5 ML SDV IVPUSH SCH ×3 (10:37→21:07)
[2023-02-12] MEDS: Pantoprazole 40 MG in Sodium Chloride 0.9% 10 ML IVPUSH SCH (11:28)
[2023-02-12] MEDS ORDERED: Metoclopramide 10 MG/2 ML SDV ONE (22:18)
[2023-02-12] MEDS: Metoclopramide 10 MG/2 ML SDV IVPUSH PRN (22:31)
[2023-02-13] MEDS: Sodium Chloride 0.9% 1,000 ML IV SCH (00:48)
[2023-02-13] MEDS ORDERED: Sodium Chloride 0.9% 100 ML ONE ×3 (03:21→19:06)
[2023-02-13] MEDS: hydrALAZINE 20 MG/ML SDV IVPUSH PRN ×2 (03:32→11:48)
[2023-02-13] MEDS: Piperacillin/Tazobactam 4.5 GM in Sodium Chloride 0.9% 100 ML IV SCH ×3 (03:36→19:20)
[2023-02-13] MEDS: Metoprolol Tartrate 5 MG/5 ML SDV IVPUSH SCH ×4 (04:21→21:39)
[2023-02-13] MEDS: Metoclopramide 10 MG/2 ML SDV IVPUSH PRN (05:49)
[2023-02-13 06:37] LABS: CARBON DIOXIDE,CO2 24.1 mmol/L (21.0-32.0)
[2023-02-13] MEDS: Nicotine 14 MG/24 Hr Patch TRDERM SCH (08:19)
[2023-02-13] MEDS: Dextrose 5%-Lactated Ringers 1,000 ML IV SCH ×2 (08:35→21:36)
[2023-02-13] MEDS: FLUTICASONE INH SCH ×2 (09:14→21:44)
[2023-02-13] MEDS: [UNRECOGNIZED DRUG - OTHER] INH SCH ×2 (09:14→21:44)
[2023-02-13] MEDS: SALMETEROL INH SCH ×2 (09:14→21:44)
[2023-02-13] MEDS ORDERED: Morphine 2 MG/ML SYRINGE IVPUSH PRN (09:51)
[2023-02-13] MEDS ORDERED: Pantoprazole 40 MG Vial ONE (11:21)
[2023-02-13] MEDS: Pantoprazole 40 MG in Sodium Chloride 0.9% 10 ML IVPUSH SCH (11:29)
[2023-02-13] MEDS: Enoxaparin 40 MG/0.4 ML Syringe SUBCUT SCH (11:29)
[2023-02-14] MEDS: hydrALAZINE 20 MG/ML SDV IVPUSH PRN (00:27)
[2023-02-14] MEDS: Metoclopramide 10 MG/2 ML SDV IVPUSH PRN ×2 (01:26→16:50)
[2023-02-14] MEDS: Piperacillin/Tazobactam 4.5 GM in Sodium Chloride 0.9% 100 ML IV SCH ×3 (04:02→19:14)
[2023-02-14] MEDS: Metoprolol Tartrate 5 MG/5 ML SDV IVPUSH SCH ×4 (04:06→21:44)
[2023-02-14] MEDS: Dextrose 5%-Lactated Ringers 1,000 ML IV SCH ×2 (04:09→16:54)
[2023-02-14 06:01] LABS: CARBON DIOXIDE,CO2 27.6 mmol/L (21.0-32.0); POTASSIUM,K 3.4 mmol/L (3.5-5.1)
[2023-02-14] MEDS: FLUTICASONE INH SCH ×2 (09:48→21:43)
[2023-02-14] MEDS: [UNRECOGNIZED DRUG - OTHER] INH SCH ×2 (09:48→21:43)
[2023-02-14] MEDS: SALMETEROL INH SCH ×2 (09:48→21:43)
[2023-02-14] MEDS: Nicotine 14 MG/24 Hr Patch TRDERM SCH (09:50)
[2023-02-14] MEDS ORDERED: Potassium Chloride 20 MEQ in Premix Bag 1 BAG IV ONE (10:59)
[2023-02-14] MEDS ORDERED: Pantoprazole 40 MG Vial ONE (10:59)
[2023-02-14] MEDS: Pantoprazole 40 MG in Sodium Chloride 0.9% 10 ML IVPUSH SCH (11:17)
[2023-02-14] MEDS: Enoxaparin 40 MG/0.4 ML Syringe SUBCUT SCH (11:17)
[2023-02-14] MEDS ORDERED: Sodium Chloride 0.9% 100 ML ONE (11:28)
[2023-02-14] MEDS: Ondansetron 4 MG/2 ML SDV IVPUSH PRN (17:15)
[2023-02-15] MEDS: Metoclopramide 10 MG/2 ML SDV IVPUSH PRN (01:20)
[2023-02-15] MEDS: Dextrose 5%-Lactated Ringers 1,000 ML IV SCH ×4 (01:20→23:27)
[2023-02-15] MEDS: Metoprolol Tartrate 5 MG/5 ML SDV IVPUSH SCH ×4 (04:03→21:37)
[2023-02-15] MEDS: Piperacillin/Tazobactam 4.5 GM in Sodium Chloride 0.9% 100 ML IV SCH ×3 (04:03→18:36)
[2023-02-15 06:10] LABS: POTASSIUM,K 3.1 mmol/L (3.5-5.1)
[2023-02-15] MEDS: Potassium Chloride 100 ML IV SCH ×3 (08:35→13:45)
[2023-02-15] MEDS: [UNRECOGNIZED DRUG - OTHER] INH SCH ×3 (09:03→23:27)
[2023-02-15] MEDS: SALMETEROL INH SCH ×3 (09:03→23:27)
[2023-02-15] MEDS: FLUTICASONE INH SCH ×3 (09:03→23:27)
[2023-02-15] MEDS: Nicotine 14 MG/24 Hr Patch TRDERM SCH (09:37)
[2023-02-15] MEDS: Enoxaparin 40 MG/0.4 ML Syringe SUBCUT SCH (10:39)
[2023-02-15] MEDS: Pantoprazole 40 MG in Sodium Chloride 0.9% 10 ML IVPUSH SCH (11:54)
[2023-02-16] MEDS: Metoprolol Tartrate 5 MG/5 ML SDV IVPUSH SCH ×4 (03:47→21:32)
[2023-02-16] MEDS: Piperacillin/Tazobactam 4.5 GM in Sodium Chloride 0.9% 100 ML IV SCH ×3 (03:47→19:05)
[2023-02-16] MEDS: Metoclopramide 10 MG/2 ML SDV IVPUSH PRN (03:53)
[2023-02-16] MEDS: Dextrose 5%-Lactated Ringers 1,000 ML IV SCH ×3 (06:36→21:32)
[2023-02-16] MEDS: SALMETEROL INH SCH ×2 (09:20→21:27)
[2023-02-16] MEDS: FLUTICASONE INH SCH ×2 (09:20→21:27)
[2023-02-16] MEDS: Nicotine 14 MG/24 Hr Patch TRDERM SCH (09:20)
[2023-02-16] MEDS: Ondansetron 4 MG/2 ML SDV IVPUSH PRN (09:20)
[2023-02-16] MEDS: [UNRECOGNIZED DRUG - OTHER] INH SCH ×2 (09:20→21:27)
[2023-02-16 10:51] LABS: POTASSIUM,K 4.2 mmol/L (3.5-5.1)
[2023-02-16] MEDS ORDERED: Dexmedetomidine 200 MCG/2 ML SDV ONE (11:02)
[2023-02-16] MEDS ORDERED: Benzocaine 20% Topical Spray UD MUCMEM ONE (11:10)
[2023-02-16] MEDS: Enoxaparin 40 MG/0.4 ML Syringe SUBCUT SCH (11:40)
[2023-02-16] MEDS: Pantoprazole 40 MG in Sodium Chloride 0.9% 10 ML IVPUSH SCH (12:22)
[2023-02-17] MEDS: Albuterol/Ipratropium 3.0-0.5 MG/3 ML Neb Soln NEB PRN ×2 (02:40→20:51)
[2023-02-17] MEDS: Metoprolol Tartrate 5 MG/5 ML SDV IVPUSH SCH ×4 (03:09→22:18)
[2023-02-17] MEDS: Piperacillin/Tazobactam 4.5 GM in Sodium Chloride 0.9% 100 ML IV SCH ×3 (03:22→19:07)
[2023-02-17] MEDS: Dextrose 5%-Lactated Ringers 1,000 ML IV SCH ×3 (04:09→19:55)
[2023-02-17 06:41] LABS: CARBON DIOXIDE,CO2 31.7 mmol/L (21.0-32.0); POTASSIUM,K 3.2 mmol/L (3.5-5.1)
[2023-02-17] MEDS ORDERED: Magnesium Sulfate/Water 4 GM in Premix Bag 1 BAG IV ONE (07:04)
[2023-02-17] MEDS: Potassium Chloride 100 ML IV SCH ×2 (07:49→10:08)
[2023-02-17] MEDS: Nicotine 14 MG/24 Hr Patch TRDERM SCH (09:00)
[2023-02-17] MEDS: [UNRECOGNIZED DRUG - OTHER] INH SCH ×2 (09:01→21:04)
[2023-02-17] MEDS: FLUTICASONE INH SCH ×2 (09:01→21:04)
[2023-02-17] MEDS: SALMETEROL INH SCH ×2 (09:01→21:04)
[2023-02-17] MEDS ORDERED: Benzocaine 20% Topical Spray UD MUCMEM PRN ×2 (09:09→09:14)
[2023-02-17] MEDS ORDERED: Acetaminophen 1,000 MG in Premix Bag 1 BAG IV ONE (10:52)
[2023-02-17] MEDS: Enoxaparin 40 MG/0.4 ML Syringe SUBCUT SCH (11:37)
[2023-02-17] MEDS: Pantoprazole 40 MG in Sodium Chloride 0.9% 10 ML IVPUSH SCH (12:27)
[2023-02-17] MEDS: hydrALAZINE 20 MG/ML SDV IVPUSH PRN (20:16)
[2023-02-18] MEDS: Albuterol/Ipratropium 3.0-0.5 MG/3 ML Neb Soln NEB PRN ×3 (01:03→17:54)
[2023-02-18] MEDS: Sodium Chloride 0.65% Nasal Spray 45 ML Bottle NAS PRN ×2 (01:05→18:43)
[2023-02-18] MEDS: Dextrose 5%-Lactated Ringers 1,000 ML IV SCH ×3 (03:01→18:54)
[2023-02-18] MEDS: Piperacillin/Tazobactam 4.5 GM in Sodium Chloride 0.9% 100 ML IV SCH ×3 (03:02→18:31)
[2023-02-18] MEDS: Metoprolol Tartrate 5 MG/5 ML SDV IVPUSH SCH ×4 (04:25→21:30)
[2023-02-18 06:05] LABS: CARBON DIOXIDE,CO2 31.7 mmol/L (21.0-32.0)
[2023-02-18] MEDS: [UNRECOGNIZED DRUG - OTHER] INH SCH ×2 (08:37→22:16)
[2023-02-18] MEDS: SALMETEROL INH SCH ×2 (08:37→22:16)
[2023-02-18] MEDS: Nicotine 14 MG/24 Hr Patch TRDERM SCH (08:37)
[2023-02-18] MEDS: FLUTICASONE INH SCH ×2 (08:37→22:16)
[2023-02-18] MEDS: Potassium Chloride 100 ML IV SCH ×3 (08:39→14:07)
[2023-02-18] MEDS ORDERED: LORazepam 2 MG/ML SDV IVPUSH PRN ×2 (09:12→17:45)
[2023-02-18] MEDS: Enoxaparin 40 MG/0.4 ML Syringe SUBCUT SCH (10:56)
[2023-02-18] MEDS: hydrALAZINE 20 MG/ML SDV IVPUSH PRN (11:41)
[2023-02-18] MEDS: Pantoprazole 40 MG in Sodium Chloride 0.9% 10 ML IVPUSH SCH (11:47)
[2023-02-18] MEDS ORDERED: LORazepam 1 MG Tab PO PRN (17:20)
[2023-02-19] MEDS: Albuterol/Ipratropium 3.0-0.5 MG/3 ML Neb Soln NEB PRN ×2 (00:15→08:28)
[2023-02-19] MEDS: Dextrose 5%-Lactated Ringers 1,000 ML IV SCH ×3 (02:31→18:24)
[2023-02-19] MEDS: Metoprolol Tartrate 5 MG/5 ML SDV IVPUSH SCH ×4 (04:10→21:29)
[2023-02-19] MEDS: Piperacillin/Tazobactam 4.5 GM in Sodium Chloride 0.9% 100 ML IV SCH ×3 (04:10→18:24)
[2023-02-19 07:22] LABS: CARBON DIOXIDE,CO2 31.2 mmol/L (21.0-32.0); POTASSIUM,K 3.6 mmol/L (3.5-5.1)
[2023-02-19] MEDS ORDERED: methylPREDNISolone Sodium Succinate 125 MG/2 ML SDV IVPUSH ONE (08:37)
[2023-02-19] MEDS: SALMETEROL INH SCH ×2 (09:06→21:36)
[2023-02-19] MEDS: [UNRECOGNIZED DRUG - OTHER] INH SCH ×2 (09:06→21:36)
[2023-02-19] MEDS: FLUTICASONE INH SCH ×2 (09:06→21:36)
[2023-02-19] MEDS: Albuterol/Ipratropium 3.0-0.5 MG/3 ML Neb Soln NEB SCH ×4 (10:53→21:27)
[2023-02-19] MEDS: Enoxaparin 40 MG/0.4 ML Syringe SUBCUT SCH (10:56)
[2023-02-19] MEDS: Pantoprazole 40 MG in Sodium Chloride 0.9% 10 ML IVPUSH SCH (11:01)
[2023-02-20] MEDS: Metoclopramide 10 MG/2 ML SDV IVPUSH PRN (02:03)
[2023-02-20] MEDS: Dextrose 5%-Lactated Ringers 1,000 ML IV SCH ×2 (02:09→23:26)
[2023-02-20] MEDS: Albuterol/Ipratropium 3.0-0.5 MG/3 ML Neb Soln NEB SCH ×7 (02:11→23:25)
[2023-02-20] MEDS: Metoprolol Tartrate 5 MG/5 ML SDV IVPUSH SCH ×4 (04:26→21:05)
[2023-02-20] MEDS: Piperacillin/Tazobactam 4.5 GM in Sodium Chloride 0.9% 100 ML IV SCH ×3 (04:26→18:15)
[2023-02-20 07:34] LABS: CARBON DIOXIDE,CO2 30.2 mmol/L (21.0-32.0); POTASSIUM,K 3.4 mmol/L (3.5-5.1)
[2023-02-20] MEDS ORDERED: Potassium Chloride 20 MEQ in Premix Bag 1 BAG IV ONE (09:15)
[2023-02-20] MEDS: [UNRECOGNIZED DRUG - OTHER] INH SCH ×2 (09:32→21:04)
[2023-02-20] MEDS: FLUTICASONE INH SCH ×2 (09:32→21:04)
[2023-02-20] MEDS: SALMETEROL INH SCH ×2 (09:32→21:04)
[2023-02-20] MEDS: Pantoprazole 40 MG in Sodium Chloride 0.9% 10 ML IVPUSH SCH (12:50)
[2023-02-20] MEDS: Enoxaparin 40 MG/0.4 ML Syringe SUBCUT SCH (12:51)
[2023-02-20] MEDS ORDERED: methylPREDNISolone Sodium Succinate 40 MG/1 ML SDV IVPUSH ONE (13:23)
[2023-02-21] MEDS: Albuterol/Ipratropium 3.0-0.5 MG/3 ML Neb Soln NEB SCH ×3 (02:37→11:50)
[2023-02-21] MEDS: Piperacillin/Tazobactam 4.5 GM in Sodium Chloride 0.9% 100 ML IV SCH ×2 (03:16→10:59)
[2023-02-21] MEDS: Metoprolol Tartrate 5 MG/5 ML SDV IVPUSH SCH ×2 (03:17→09:42)
[2023-02-21 07:37] LABS: CARBON DIOXIDE,CO2 31.5 mmol/L (21.0-32.0); POTASSIUM,K 3.5 mmol/L (3.5-5.1)
[2023-02-21] MEDS: Dextrose 5%-Lactated Ringers 1,000 ML IV SCH (07:38)
[2023-02-21] MEDS: SALMETEROL INH SCH (09:45)
[2023-02-21] MEDS: [UNRECOGNIZED DRUG - OTHER] INH SCH (09:45)
[2023-02-21] MEDS: FLUTICASONE INH SCH (09:45)
[2023-02-21] MEDS: Pantoprazole 40 MG in Sodium Chloride 0.9% 10 ML IVPUSH SCH (10:59)
[2023-02-21] MEDS: Enoxaparin 40 MG/0.4 ML Syringe SUBCUT SCH (11:00)
[2023-02-21 13:35] VITALS: BP 155/78; PULSE 78
== END 2023-02-21 13:25 | disposition home or self-care (01) | DRG 389 ==
LOC: MW.ED 08:23 → MW.MS 11:39
PROVIDERS: ADMIT Hospitalist; ATTEND Hospitalist
PROC: 0D9670Z Drainage of Stomach with Drainage Device, Via Natural or Artificial Opening (ICD-10-PCS; principal; 2023-02-16)
DX: K56.600 Partial intestinal obstruction, unspecified as to cause (principal); N17.9 Acute kidney failure, unspecified; N32.1 Vesicointestinal fistula; I25.10 Atherosclerotic heart disease of native coronary artery without angina pectoris; E78.5 Hyperlipidemia, unspecified; M19.90 Unspecified osteoarthritis, unspecified site; F17.210 Nicotine dependence, cigarettes, uncomplicated; Z20.822 Contact with and (suspected) exposure to COVID-19; C32.9 Malignant neoplasm of larynx, unspecified; E78.00 Pure hypercholesterolemia, unspecified; H54.7 Unspecified visual loss; J47.9 Bronchiectasis, uncomplicated; K56.7 Ileus, unspecified; E83.42 Hypomagnesemia; E87.6 Hypokalemia; G47.30 Sleep apnea, unspecified; Z79.52 Long term (current) use of systemic steroids; Z79.899 Other long term (current) drug therapy; Z86.73 Personal history of transient ischemic attack (TIA), and cerebral infarction without residual deficits; Z90.49 Acquired absence of other specified parts of digestive tract; Z95.5 Presence of coronary angioplasty implant and graft
CPT/HCPCS: 36415; 44500; 71045; 71045-26; 74018; 74018-26; 74019; 74019-26; 74177; 74177-26; 74250; 74250-26; 80048; 80053; 81003; 82947; 83605; 83690; 83735; 84100; 84484; 85025; 85610; 87040; 93005; 93010; 94640; 94664; 96361; 96365; 96375; 96376; 97161-GP; 97530-GP; 99100; 99223; 99231; 99232; 99233; 99239; 99284; 99285-25; A9270-GY; C9113; J0131; J0360; J1170; J1650; J2060; J2270; J2405; J2543; J2765; J2920; J2930; J3475; J3480; J3490; J7030; J7121; J7620-GY; Q9967; U0002

== ENCOUNTER 2023-10-24 22:41 | Emergency (ER) | payer MEDICARE, BC ==
[2023-10-24] MEDS ORDERED: EPINEPHrine 1 MG/1 ML Amp IM STA (22:51)
[2023-10-24] MEDS ORDERED: methylPREDNISolone Sodium Succinate 125 MG/2 ML SDV IVPUSH STA (22:51)
[2023-10-24] MEDS ORDERED: methylPREDNISolone Sodium Succinate 125 MG/2 ML SDV ONE (22:51)
[2023-10-24] MEDS ORDERED: EPINEPHrine 1 MG/1 ML Amp ONE (22:51)
[2023-10-24 23:06] LABS: BASOPHILS ABSOLUTE AUTO 0.01 K/uL (0.00-0.20); BASOPHILS PERCENT AUTO 0.2 % (0.0-1.0); EOSINOPHILS ABSOLUTE AUTO 0.04 K/uL (0.00-0.45); EOSINOPHILS PERCENT AUTO 0.9 % (0.0-6.0); HEMATOCRIT 40.3 % (42.0-52.0); HEMOGLOBIN 13.1 g/dL (14.0-18.0); IMMATURE GRAN ABSOLUTE AUTO 0.02 K/uL (0.00-0.05); IMMATURE GRAN PERCENT AUTO 0.4 % (0.0-0.4); LYMPHOCYTES ABSOLUTE AUTO 0.47 K/uL (1.00-4.80); LYMPHOCYTES PERCENT AUTO 10.2 % (24.0-44.0); MEAN CORPUSCULAR HEMOGLOBIN 28.5 pg (28.0-32.0); MEAN CORPUSCULAR HGB CONC 32.5 g/dL (32.0-36.0); MEAN CORPUSCULAR VOLUME 87.6 fL (83.0-99.0); MEAN PLATELET VOLUME 11.6 fL (9.4-12.4); MONOCYTES ABSOLUTE AUTO 0.32 K/uL (0.00-0.80); NEUTROPHILS ABSOLUTE AUTO 3.73 K/uL (1.80-7.70); NEUTROPHILS PERCENT AUTO 81.3 % (41.0-71.0); PLATELET COUNT,PLT 99 K/uL (150-400); WHITE BLOOD CELL COUNT,WBC 4.59 K/uL (3.9-11.3)
[2023-10-24 23:13] LABS: INR 1.13 (0.86-1.11); PTT,PARTIAL THROMBOPLSTIN TIME 28.3 SEC (23.9-30.7)
[2023-10-24 23:18] LABS: A/G RATIO 1.2 (0.9-1.6); ALBUMIN 3.5 g/dL (3.4-5.0); BILIRUBIN TOTAL 0.9 mg/dL (0.2-1.0); CALCIUM 8.8 mg/dL (8.5-10.1); CARBON DIOXIDE,CO2 29.9 mmol/L (21.0-32.0); CREATININE 1.2 mg/dL (0.8-1.3); EST CRCL DRUG DOSING (CG) 44.1 mL/min; POTASSIUM,K 4.3 mmol/L (3.5-5.1); PROTEIN TOTAL,TP 6.4 g/dL (6.4-8.2)
[2023-10-25 03:25] VITALS: BP 160/70; PULSE 72
== END 2023-10-25 03:10 | disposition home or self-care (01) ==
LOC: MW.ED 22:41
DX: T78.3XXA Angioneurotic edema, initial encounter (principal); E78.00 Pure hypercholesterolemia, unspecified; I10 Essential (primary) hypertension; J44.9 Chronic obstructive pulmonary disease, unspecified; Z90.49 Acquired absence of other specified parts of digestive tract; Z79.899 Other long term (current) drug therapy; Z88.8 Allergy status to other drugs, medicaments and biological substances
CPT/HCPCS: 36415; 36430; 80053; 85025; 85610; 85730; 86850; 86900; 86901; 96372; 96374; 99283; J0171; J2930; P9017; 99284

== ENCOUNTER 2023-11-10 08:06 | Emergency (ER) | payer MEDICARE, BC ==
[2023-11-10] MEDS ORDERED: Sodium Chloride 0.9% 2.5 ML Syringe FLUSH PRN (08:22)
[2023-11-10] MEDS ORDERED: Sodium Chloride 0.9% 10 ML Syringe FLUSH PRN (08:22)
[2023-11-10] MEDS ORDERED: diphenhydrAMINE 50 MG/ML SDV IVPUSH ONE (08:23)
[2023-11-10] MEDS ORDERED: EPINEPHrine 1 MG/1 ML Amp IM ONE ×2 (08:23→09:19)
[2023-11-10 09:02] LABS: BASOPHILS ABSOLUTE AUTO 0.02 K/uL (0.00-0.20); BASOPHILS PERCENT AUTO 0.2 % (0.0-1.0); EOSINOPHILS ABSOLUTE AUTO 0.04 K/uL (0.00-0.45); EOSINOPHILS PERCENT AUTO 0.4 % (0.0-6.0); HEMATOCRIT 39.2 % (42.0-52.0); HEMOGLOBIN 12.7 g/dL (14.0-18.0); IMMATURE GRAN ABSOLUTE AUTO 0.07 K/uL (0.00-0.05); IMMATURE GRAN PERCENT AUTO 0.7 % (0.0-0.4); LYMPHOCYTES PERCENT AUTO 3.1 % (24.0-44.0); MEAN CORPUSCULAR HEMOGLOBIN 28.9 pg (28.0-32.0); MEAN CORPUSCULAR HGB CONC 32.4 g/dL (32.0-36.0); MEAN CORPUSCULAR VOLUME 89.3 fL (83.0-99.0); MEAN PLATELET VOLUME 10.2 fL (9.4-12.4); MONOCYTES ABSOLUTE AUTO 0.28 K/uL (0.00-0.80); MONOCYTES PERCENT AUTO 2.9 % (0.0-8.0); NEUTROPHILS ABSOLUTE AUTO 8.93 K/uL (1.80-7.70); NEUTROPHILS PERCENT AUTO 92.7 % (41.0-71.0); PLATELET COUNT,PLT 162 K/uL (150-400); RED BLOOD CELL COUNT 4.39 M/uL (4.52-5.90); WHITE BLOOD CELL COUNT,WBC 9.64 K/uL (3.9-11.3)
[2023-11-10 09:22] LABS: INR 1.23 (0.86-1.11); PTT,PARTIAL THROMBOPLSTIN TIME 27.9 SEC (23.9-30.7)
[2023-11-10 09:24] LABS: A/G RATIO 0.8 (0.9-1.6); ALBUMIN 2.5 g/dL (3.4-5.0); BILIRUBIN TOTAL 0.7 mg/dL (0.2-1.0); CALCIUM 8.4 mg/dL (8.5-10.1); CARBON DIOXIDE,CO2 28.5 mmol/L (21.0-32.0); CREATININE 1.2 mg/dL (0.8-1.3); EST CRCL DRUG DOSING (CG) 42.69 mL/min; POTASSIUM,K 4.5 mmol/L (3.5-5.1); PROTEIN TOTAL,TP 5.7 g/dL (6.4-8.2)
[2023-11-10 12:21] VITALS: BP 164/59; PULSE 78
== END 2023-11-10 12:20 | disposition home or self-care (01) ==
LOC: MW.ED 08:06
DX: T78.3XXA Angioneurotic edema, initial encounter (principal); I10 Essential (primary) hypertension; E78.00 Pure hypercholesterolemia, unspecified; J44.9 Chronic obstructive pulmonary disease, unspecified; Z86.73 Personal history of transient ischemic attack (TIA), and cerebral infarction without residual deficits; Z95.5 Presence of coronary angioplasty implant and graft; Z79.899 Other long term (current) drug therapy; Z88.8 Allergy status to other drugs, medicaments and biological substances
CPT/HCPCS: 36415; 36430; 80053; 85025; 85610; 85730; 86850; 86900; 86901; 96372; 96374; 99285; J0171; J1200; J3490; P9017; 99291